=== PATIENT | female | born 1935 | race Caucasian/White ===

== ENCOUNTER 2016-04-14 18:15 | Outpatient (CLI) | payer MEDICARE, OTHER | END 2016-04-14 18:16 | disposition home or self-care (01) | DX: Z79.899 Other long term (current) drug therapy (principal); Z79.01 Long term (current) use of anticoagulants; I48.91 Unspecified atrial fibrillation ==

== ENCOUNTER 2016-05-16 08:00 | Outpatient (CLI) | payer MEDICARE, OTHER | END 2016-05-16 08:01 | disposition home or self-care (01) | DX: I48.91 Unspecified atrial fibrillation (principal); Z79.01 Long term (current) use of anticoagulants ==

== ENCOUNTER 2016-05-16 21:49 | Outpatient (CLI) | payer MEDICARE, OTHER | END 2016-05-16 21:50 | disposition home or self-care (01) | DX: Z53.9 Procedure and treatment not carried out, unspecified reason (principal) ==

== ENCOUNTER 2016-08-02 21:00 | Outpatient (CLI) | payer MEDICARE, OTHER | END 2016-08-02 21:01 | disposition home or self-care (01) | LOC: LAB 21:00 | PROVIDERS: ATTEND Internal Medicine | DX: I48.91 Unspecified atrial fibrillation (principal); Z79.01 Long term (current) use of anticoagulants | CPT/HCPCS: 85610 ==

== ENCOUNTER 2016-08-31 19:48 | Outpatient (CLI) | payer MEDICARE, OTHER | END 2016-08-31 19:49 | disposition home or self-care (01) | LOC: LAB 19:48 | PROVIDERS: ATTEND Internal Medicine | DX: I48.91 Unspecified atrial fibrillation (principal); Z79.01 Long term (current) use of anticoagulants | CPT/HCPCS: 85610 ==

== ENCOUNTER 2016-09-05 15:56 | Outpatient (CLI) | payer MEDICARE, OTHER ==
--- NOTE | 2016-09-06 14:00 | XRAY Report ---
TWO VIEW CHEST: 09/05/2016 CLINICAL INDICATION: Dyspnea, anorexia, night sweats. COMPARISON: 01/15/2013. FINDINGS: Frontal and lateral views of the chest demonstrate a normal cardiac silhouette. The lungs again demonstrate hyperinflation, suggestive of COPD. No focal consolidation, effusion, or pneumothor ax is evident. Degenerative changes of the thoracic spine are stable. IMPRESSION: HYPERINFLATION, COMPATIBLE WITH COPD. NO EVIDENCE OF ACUTE CARDIOPULMONARY DISEASE. JOB #: [id number] EXT JOB #:[id number]
== END 2016-09-05 15:57 | disposition home or self-care (01) ==
LOC: DI 15:56
PROVIDERS: ATTEND Internal Medicine
DX: R06.00 Dyspnea, unspecified (principal); R63.0 Anorexia; R61 Generalized hyperhidrosis
CPT/HCPCS: 71020

== ENCOUNTER 2016-09-18 12:53 | Outpatient (CLI) | payer MEDICARE, OTHER | END 2016-09-18 12:54 | disposition home or self-care (01) | LOC: DI 12:53 | PROVIDERS: ATTEND Internal Medicine | DX: R06.00 Dyspnea, unspecified (principal); M06.9 Rheumatoid arthritis, unspecified; I37.1 Nonrheumatic pulmonary valve insufficiency | CPT/HCPCS: 93306 ==

== ENCOUNTER 2016-10-13 21:08 | Outpatient (CLI) | payer MEDICARE, OTHER | END 2016-10-13 21:09 | disposition home or self-care (01) | LOC: LAB 21:08 | PROVIDERS: ATTEND Internal Medicine | DX: I48.91 Unspecified atrial fibrillation (principal); Z79.01 Long term (current) use of anticoagulants | CPT/HCPCS: 85610 ==

== ENCOUNTER 2016-11-23 22:00 | Outpatient (CLI) | payer MEDICARE, OTHER ==
[2016-11-29 16:58] LABS: PT - PROTHROMBIN TIME 22.6 secs (9.9-12.6)
== END 2016-11-23 22:01 | disposition home or self-care (01) ==
LOC: LAB 22:00
PROVIDERS: ATTEND Internal Medicine
DX: Z53.9 Procedure and treatment not carried out, unspecified reason (principal)
CPT/HCPCS: 36415; 85610

== ENCOUNTER 2017-01-19 19:51 | Outpatient (CLI) | payer MEDICARE, OTHER | END 2017-01-19 19:52 | disposition home or self-care (01) | LOC: LAB 19:51 | PROVIDERS: ATTEND Internal Medicine | DX: I48.91 Unspecified atrial fibrillation (principal); Z79.01 Long term (current) use of anticoagulants | CPT/HCPCS: 85610 ==

== ENCOUNTER 2017-02-21 21:13 | Outpatient (CLI) | payer MEDICARE, OTHER | END 2017-02-21 21:14 | disposition home or self-care (01) | LOC: LAB 21:13 | PROVIDERS: ATTEND Internal Medicine | DX: I48.91 Unspecified atrial fibrillation (principal); Z79.01 Long term (current) use of anticoagulants | CPT/HCPCS: 85610 ==

== ENCOUNTER 2017-04-13 21:48 | Outpatient (CLI) | payer MEDICARE, OTHER | END 2017-04-13 21:49 | disposition home or self-care (01) | LOC: LAB 21:48 | PROVIDERS: ATTEND Internal Medicine | DX: I48.91 Unspecified atrial fibrillation (principal); Z79.01 Long term (current) use of anticoagulants | CPT/HCPCS: 85610 ==

== ENCOUNTER 2017-05-25 18:50 | Outpatient (CLI) | payer MEDICARE, OTHER | END 2017-05-25 18:51 | disposition home or self-care (01) | LOC: LAB 18:50 | PROVIDERS: ATTEND Internal Medicine | DX: I48.91 Unspecified atrial fibrillation (principal); Z79.01 Long term (current) use of anticoagulants | CPT/HCPCS: 85610 ==

== ENCOUNTER 2017-07-02 19:24 | Outpatient (CLI) | payer MEDICARE, OTHER | END 2017-07-02 19:25 | disposition home or self-care (01) | LOC: LAB 19:24 | PROVIDERS: ATTEND Internal Medicine | DX: I48.91 Unspecified atrial fibrillation (principal); Z79.01 Long term (current) use of anticoagulants | CPT/HCPCS: 85610 ==

== ENCOUNTER 2017-08-13 21:17 | Outpatient (CLI) | payer MEDICARE, OTHER | END 2017-08-13 21:18 | disposition home or self-care (01) | LOC: LAB 21:17 | PROVIDERS: ATTEND Internal Medicine | DX: I48.91 Unspecified atrial fibrillation (principal); Z79.01 Long term (current) use of anticoagulants | CPT/HCPCS: 85610 ==

== ENCOUNTER 2017-09-26 22:07 | Outpatient (CLI) | payer MEDICARE, OTHER | END 2017-09-26 22:08 | disposition home or self-care (01) | LOC: LAB 22:07 | PROVIDERS: ATTEND Internal Medicine | DX: I48.91 Unspecified atrial fibrillation (principal); Z79.01 Long term (current) use of anticoagulants | CPT/HCPCS: 85610 ==

== ENCOUNTER 2017-11-19 22:03 | Outpatient (CLI) | payer MEDICARE, OTHER | END 2017-11-19 22:04 | disposition home or self-care (01) | LOC: LAB 22:03 | PROVIDERS: ATTEND Internal Medicine | DX: I48.91 Unspecified atrial fibrillation (principal); Z79.01 Long term (current) use of anticoagulants | CPT/HCPCS: 85610 ==

== ENCOUNTER 2017-12-23 23:08 | Outpatient (CLI) | payer MEDICARE, OTHER | END 2017-12-23 23:09 | disposition home or self-care (01) | LOC: LAB 23:08 | PROVIDERS: ATTEND Internal Medicine | DX: I48.91 Unspecified atrial fibrillation (principal); Z79.01 Long term (current) use of anticoagulants | CPT/HCPCS: 85610 ==

== ENCOUNTER 2018-02-13 19:58 | Outpatient (CLI) | payer MEDICARE, OTHER | END 2018-02-13 19:59 | disposition home or self-care (01) | LOC: LAB 19:58 | PROVIDERS: ATTEND Internal Medicine | DX: I48.91 Unspecified atrial fibrillation (principal); Z79.01 Long term (current) use of anticoagulants | CPT/HCPCS: 85610 ==

== ENCOUNTER 2018-04-17 20:14 | Outpatient (CLI) | payer MEDICARE, OTHER | END 2018-04-17 20:15 | disposition home or self-care (01) | LOC: LAB 20:14 | PROVIDERS: ATTEND Internal Medicine | DX: I48.91 Unspecified atrial fibrillation (principal); Z79.01 Long term (current) use of anticoagulants | CPT/HCPCS: 85610 ==

== ENCOUNTER 2018-05-21 19:07 | Outpatient (CLI) | payer MEDICARE, OTHER | END 2018-05-21 19:08 | disposition home or self-care (01) | LOC: LAB 19:07 | PROVIDERS: ATTEND Internal Medicine | DX: I48.91 Unspecified atrial fibrillation (principal); Z79.01 Long term (current) use of anticoagulants | CPT/HCPCS: 85610 ==

== ENCOUNTER 2018-06-28 20:11 | Outpatient (CLI) | payer MEDICARE, OTHER | END 2018-06-28 20:12 | disposition home or self-care (01) | LOC: LAB 20:11 | PROVIDERS: ATTEND Internal Medicine | DX: I48.91 Unspecified atrial fibrillation (principal); Z79.01 Long term (current) use of anticoagulants | CPT/HCPCS: 85610 ==

== ENCOUNTER 2018-08-06 20:59 | Outpatient (CLI) | payer MEDICARE, OTHER | END 2018-08-06 21:00 | disposition home or self-care (01) | LOC: LAB 20:59 | PROVIDERS: ATTEND Internal Medicine | DX: I48.91 Unspecified atrial fibrillation (principal); Z79.01 Long term (current) use of anticoagulants | CPT/HCPCS: 85610 ==

== ENCOUNTER 2018-08-06 21:20 | Emergency (ER) | payer MEDICARE, OTHER ==
--- NOTE | 2018-08-06 21:55 | XRAY Report ---
Reason: toilet lid vs left wrist Procedure Date: 08/06/2018 Accession Number: [id number] / [id number] Procedure: XR - Wrist 4 View LT CPT Code: FULL RESULT: EXAM: LEFT WRIST RADIOGRAPHY EXAM DATE: 08/06/2018 09:45 PM. CLINICAL HISTORY: Toilet lid vs left wrist. COMPARISON: HAND 2 VIEW BILAT 02/25/2014 6:17 PM. TECHNIQUE: 4 views. FINDINGS: Bones: No fracture or focal bony lesion. Joints: No evidence of dislocation. Soft Tissues: No unexpected soft tissue findings. IMPRESSION: No evidence of fracture or dislocation. RADIA
--- NOTE | 2018-08-06 22:32 | ED Physician Documentation ---
PD HPI UPPER EXT INJURY - Stated complaint Stated Complaint: LT WRIST PX - Chief complaint Chief Complaint: Ext Problem - History obtained from History obtained from: Patient - History of Present Illness Location: Left, Wrist Type of injury: Blunt / blow (3 months ago patient closed a toilet seat lid on her left wrist and it has ached ever since. Today the [employer]orer [employer] told her to come to the ED to get it checked out) Where injury occurred: Home Timing - onset: How many months ago (3) Timing - duration: Months (3) Timing - details: Abrupt onset, Still present Pain level max: 5 Pain level now: 3 Improved by: Rest Worsened by: Moving, Palpating Associated symptoms: No: Weakness, Numbness, Tingling, Swelling Contributing factors: No: Anticoagulated, Prior ortho surgery Similar symptoms before: Has not had sx before Recently seen: Clinic (saw her doctor but forgot to tell him about it) - Treatment prior to arrival Treatment prior to arrival: none PD PAST MEDICAL HISTORY - Past Medical History Past Medical History: Yes - Allergies Allergies/Adverse Reactions: Allergies Allergy/AdvReac Type Severity Reaction Status Date / Time codeine Allergy Hallucinati Verified 08/06/18 21:31 ons PD ED PE NORMAL - Vitals Vital signs reviewed: Yes - General General: Alert and oriented X 3, No acute distress - HEENT HEENT: Atraumatic - Neck Neck: Supple, no meningeal sign - Cardiac Cardiac: RRR - Respiratory Respiratory: No respiratory distress - Abdomen Abdomen: Non distended - Female Female : Deferred - Rectal Rectal: Deferred - Derm Derm: Normal color, Warm and dry, No rash - Extremities Extremities: No deformity, No tenderness to palpate, Normal ROM s pain, No edema, No calf tenderness / cord, Other (Left wrist without significant tenderness, swelling or deformity. Neurovascularly intact) - Neuro Neuro: Alert and oriented X 3, No motor deficit, No sensory deficit Eye Opening: Spontaneous Motor: Obeys Commands Verbal: Oriented GCS Score: 15 - Psych Psych: Normal mood, Normal affect Results - Vitals Vitals: Oxygen O2 Source Room air - Rads (name of study) No standard instances Radiology: Final report received (negative L wrist xray) PD MEDICAL DECISION MAKING - ED course Complexity details: reviewed results, re-evaluated patient, considered differential, d/w patient ED course: DDx - left wrist sprain, fracture, contusion 3 month old minor trauma to L wrist. Pt with normal exam and full ROM Pt with normal xrays Advised tylenol as needed for pain. Departure - Departure Disposition: 01 Home, Self Care Clinical Impression: Wrist pain, left, Wrist arthritis Condition: Good Record reviewed to determine appropriate education?: Yes Instructions: ED Contusion Upper Extr Ch Follow-Up: Marcio Tracy IV, MD [Physician No Access] - As Needed Comments: Your wrist xrays here today were negative for fracture or dislocation. This is likely some arthritis of your wrist. You should take tylenol 500mg every 6 hours as needed for pain. Discharge Date/Time: 08/06/18 23:23
[2018-08-06] MEDS ORDERED: ACETAMINOPHEN 325 MG TABLET PO STA (22:51)
[2018-08-06 23:22] VITALS: BP 180/63
== END 2018-08-06 23:23 | disposition home or self-care (01) ==
LOC: ED 21:20
DX: M19.032 Primary osteoarthritis, left wrist (principal); I48.91 Unspecified atrial fibrillation; Z79.01 Long term (current) use of anticoagulants
CPT/HCPCS: 73110; 85610; 99281; 99283; A9270

== ENCOUNTER 2018-10-05 21:14 | Outpatient (CLI) | payer MEDICARE, OTHER | END 2018-10-05 21:15 | disposition home or self-care (01) | LOC: LAB 21:14 | PROVIDERS: ATTEND Internal Medicine | DX: I48.91 Unspecified atrial fibrillation (principal); Z79.01 Long term (current) use of anticoagulants | CPT/HCPCS: 85610 ==

== ENCOUNTER 2018-10-05 21:39 | Emergency (ER) | payer MEDICARE, OTHER ==
[2018-10-05] MEDS ORDERED: CEPHALEXIN 250 MG Prepack 8 CAP BOTTLE PO STA (21:53)
--- NOTE | 2018-10-05 21:56 | ED Physician Documentation ---
History of Present Illness - Stated complaint Stated Complaint: BILAT ANKLE REDNESS - Chief complaint Chief Complaint: Ext Problem - History obtained from History obtained from: Patient - History of Present Illness Timing: Today (She noticed a spotty rash on the anterior ankles today and is worried about an infection. She has no fevers or chills but does not feel "peppy." She also notes that about a month and a half ago she injured her left wrist with negative x-rays but still has persistent pain along the radial side of the wrist with certain motions.) Review of Systems Constitutional: reports: Reviewed and negative Nose: reports: Reviewed and negative Throat: reports: Reviewed and negative Cardiac: reports: Reviewed and negative Respiratory: reports: Reviewed and negative PD PAST MEDICAL HISTORY - Past Medical History Past Medical History: Yes Cardiovascular: Atrial fibrillation Respiratory: Pneumonia, Shortness of breath Neuro: None Endocrine/Autoimmune: HyPOthyroidism GI: None 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 : Incontinence, Frequency HEENT: Other Psych: None Musculoskeletal: Rheumatoid arthritis Derm: None - Past Surgical History Past Surgical History: Yes /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 MAKER: section, Tubal ligation Cardiovascular: Other HEENT: Cataracts - Present Medications Home Medications: Ambulatory Orders Medication Instructions Recorded Confirmed Cephalexin [Keflex] 500 mg PO Q6H #28 capsule 10/05/18 - Allergies Allergies/Adverse Reactions: Allergies Allergy/AdvReac Type Severity Reaction Status Date / Time codeine Allergy Hallucinati Verified 10/05/18 21:46 ons - Social History Does the pt smoke?: No Smoking Status: Never smoker Does the pt drink ETOH?: Yes Does the pt have substance abuse?: No - Immunizations Immunizations are current?: Yes - POLST Patient has POLST: No PD ED PE NORMAL - Vitals Vital signs reviewed: Yes - General General: Alert and oriented X 3, No acute distress - Extremities Extremities: Other (She has very mild cellulitis of the anterior ankles without TTP and With full range of motion, nontender. Good pedal pulses. The left wrist itself is not tender, but she has significant pain with de Quervain's testing.) - Neuro Neuro: Alert and oriented X 3, Normal speech Results - Vitals Vitals: Vital Signs - 24 hr 10/05/18 10/05/18 21:42 22:09 Temperature 36.9 C Heart Rate 60 52 L Respiratory 96 H 18 Rate Blood Pressure 202/71 H 191/76 H O2 Saturation 98 98 Oxygen O2 Source Room air PD MEDICAL DECISION MAKING - ED course ED course: 83yo woman on coumadin with mild anle cellulitis, started keflex, discussed need for close PT testing. Also what seems like a persistent tendinitis of L wrist s/p injury and placed in a velcro splint. Departure - Departure Disposition: 01 Home, Self Care Clinical Impression: Left wrist tendinitis, Cellulitis of ankle Condition: Good Record reviewed to determine appropriate education?: Yes Instructions: ED Infec Skin Cellulitis, ED Tendinitis Calcific Follow-Up: Addie Saenz MD [Primary Care Provider] - Within 3 Days Prescriptions: Cephalexin [Keflex] 500 mg PO Q6H #28 capsule Comments: Often times when you start antibiotics while you are taking anticoagulants such as Coumadin or warfarin, your INR will go up. You need to have your INR checked frequently while on the antibiotics. Have it checked in 3 days, again in 6 days, and at least weekly while you are on antibiotics. Dose adjustments of your anticoagulants may be necessary. Your blood pressure was elevated today on check into the emergency department. This does not mean that you have hypertension, it is a common phenomenon to come to the emergency department and have elevated blood pressure. I recommend that you see your primary care physician within the week to have it rechecked when you are feeling better. Discharge Date/Time: 10/05/18 22:30
[2018-10-05 22:09] VITALS: BP 191/76
== END 2018-10-05 22:30 | disposition home or self-care (01) ==
LOC: ED 21:39
DX: L03.116 Cellulitis of left lower limb (principal); L03.115 Cellulitis of right lower limb; M77.9 Enthesopathy, unspecified; M25.532 Pain in left wrist; R03.0 Elevated blood-pressure reading, without diagnosis of hypertension; I48.91 Unspecified atrial fibrillation; Z79.01 Long term (current) use of anticoagulants
CPT/HCPCS: 85610; 99282; 99283

== ENCOUNTER 2018-10-10 16:07 | Outpatient (CLI) | payer MEDICARE, OTHER ==
--- NOTE | 2018-10-11 08:30 | Mammography Report ---
Reason: ANNUAL Procedure Date: 10/10/2018 Accession Number: [id number] / [id number] Procedure: BETI - Screening Mammo Dig Bilat CPT Code: FULL RESULT: EXAM: Screening Mammo Dig Bilat DATE: 10/10/2018 4:48 PM CLINICAL HISTORY: Screening encounter. History of early menses. TECHNIQUE: (B) - Bilateral CC, laterally exaggerated CC, MLO views were obtained. COMPARISON: 07/15/2015. PARENCHYMAL PATTERN: (A) - The breast(s) demonstrate(s) scattered fibroglandular densities. FINDINGS: There are typically benign large rodlike, vascular and coarse calcifications. There are no suspicious masses, calcifications, or areas of distortion. IMPRESSION: Benign findings. BI-RADS category 2. RECOMMENDATION: (ANNUAL) - Recommend routine annual screening mammography. BI-RADS CATEGORY: (2) - Benign Findings. STANDARD QUALIFYING STATEMENTS: 1. This examination was not reviewed with the aid of Computer-Aided Detection (CAD). 2. A negative or benign imaging report should not preclude biopsy if clinically suspicious findings are present. 3. Dense breasts may obscure an underlying neoplasm. 4. This examination was reviewed without the aid of 3D breast imaging (tomosynthesis).
== END 2018-10-10 16:08 | disposition home or self-care (01) ==
LOC: DI 16:07
DX: Z12.31 Encounter for screening mammogram for malignant neoplasm of breast (principal)
CPT/HCPCS: 77067

== ENCOUNTER 2018-10-14 19:19 | Outpatient (CLI) | payer MEDICARE, OTHER | END 2018-10-14 19:20 | disposition home or self-care (01) | LOC: LAB 19:19 | PROVIDERS: ATTEND Internal Medicine | DX: I48.91 Unspecified atrial fibrillation (principal); Z79.01 Long term (current) use of anticoagulants | CPT/HCPCS: 85610 ==

== ENCOUNTER 2018-10-14 19:36 | Emergency (ER) | payer MEDICARE, OTHER ==
--- NOTE | 2018-10-14 21:07 | ED Physician Documentation ---
PD HPI SKIN - Stated complaint Stated Complaint: BILAT LEG RASH - Chief complaint Chief Complaint: Wound - History obtained from History obtained from: Patient - History of Present Illness Timing - onset: How many weeks ago (1) Timing - details: Gradual onset, Now resolved (mostly gone without redness nor swelling anymore but still has some red spots that patient is concerned that the infection is not fully resolved.) Location: RLE, LLE (both anterior lower legs had had swelling and redness, no sores.) Quality / character: Other (no longer any redness nor swelling like a week ago.). No: Itchy Associated symptoms: No: Fever, Myalgias, N/V/D Recently seen: Emergency Dept (seen a week or so ago with Dx cellulitis on lower legs. Rx with Keflex and she says is motl better with still some residual red spots. 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 : Incontinence, Frequency HEENT: Other Psych: None Musculoskeletal: Rheumatoid arthritis Derm: None - Past Surgical History Past Surgical History: Yes /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, Tubal ligation Cardiovascular: Other HEENT: Cataracts - Present Medications Home Medications: Ambulatory Orders Medication Instructions Recorded Confirmed Cephalexin [Keflex] 500 mg PO Q6H #28 capsule 10/05/18 Doxycycline Hyclate 100 mg PO BID #14 capsule 10/14/18 - Allergies Allergies/Adverse Reactions: Allergies Allergy/AdvReac Type Severity Reaction Status Date / Time codeine Allergy Hallucinati Verified 10/14/18 19:43 ons - Social History Does the pt smoke?: No Smoking Status: Never smoker Does the pt drink ETOH?: Yes Does the pt have substance abuse?: No - Immunizations Immunizations are current?: Yes - POLST Patient has POLST: No PD ED PE NORMAL - Vitals Vital signs reviewed: Yes - General General: Alert and oriented X 3, No acute distress, Well developed/nourished - Cardiac Cardiac: RRR, No murmur - Respiratory Respiratory: Clear bilaterally - Derm Derm: Normal color, Warm and dry - Extremities Extremities: No edema, No calf tenderness / cord, Other (Both anterior lower legs are without any notable swelling redness or edema. The skin does have small little red spots consistent with mild petechiae and look most consistent with small vessel injury from when she had had swelling. I do not see any purpura. There is no induration. No skin sores nor abscesses. The calves are nontender.) - Neuro Neuro: Alert and oriented X 3, No motor deficit, Normal speech Results - Vitals Vitals: Oxygen O2 Source Room air PD MEDICAL DECISION MAKING - ED course Complexity details: re-evaluated patient (her BP was elevated here, and was on prior visit as well. She says it is usually okay in office or just slightly high. Talked with her about having it checked by PMD. ), considered differential (I think the skin does not look cellulitic anymore but has some very small petechial type changes suggestive of a small vessel injury when there has been swelling. I told her to watch the skin over the next couple of days and see if she has any increasing redness again and if so to start antibiotics. Otherwise to allow it to just keep healing.), d/w patient Departure - Departure Disposition: 01 Home, Self Care Clinical Impression: Encounter for wound re-check Condition: Stable Record reviewed to determine appropriate education?: Yes Follow-Up: Addie Saenz MD [Primary Care Provider] - Prescriptions: Doxycycline Hyclate 100 mg PO BID #14 capsule Comments: Your legs look pretty good today with just slight bit of redness. This may be just residual coloration after the cellulitis. Give it a couple of days and see if the redness increases again and if so start the antibiotic. Otherwise if it stays looking as it currently does, then just follow-up with your primary care next week as planned. Continue usual medications. Discharge Date/Time: 10/14/18 21:24
[2018-10-14 21:19] VITALS: BP 208/78
== END 2018-10-14 21:24 | disposition home or self-care (01) ==
LOC: ED 19:36
DX: R23.3 Spontaneous ecchymoses (principal); R03.0 Elevated blood-pressure reading, without diagnosis of hypertension; I48.91 Unspecified atrial fibrillation; Z79.01 Long term (current) use of anticoagulants
CPT/HCPCS: 85610; 99282; 99284

== ENCOUNTER 2018-11-26 22:33 | Outpatient (CLI) | payer MEDICARE, OTHER | END 2018-11-26 22:34 | disposition home or self-care (01) | LOC: LAB 22:33 | PROVIDERS: ATTEND Internal Medicine | DX: I48.91 Unspecified atrial fibrillation (principal); Z79.01 Long term (current) use of anticoagulants | CPT/HCPCS: 85610 ==

== ENCOUNTER 2019-01-15 20:26 | Outpatient (CLI) | payer MEDICARE, OTHER | END 2019-01-15 20:27 | disposition home or self-care (01) | LOC: LAB 20:26 | PROVIDERS: ATTEND Internal Medicine | DX: I48.91 Unspecified atrial fibrillation (principal); Z79.01 Long term (current) use of anticoagulants | CPT/HCPCS: 85610 ==

== ENCOUNTER 2019-02-16 19:14 | Outpatient (CLI) | payer MEDICARE, OTHER ==
[2019-02-16 19:47] LABS: INR 2.2 (0.8-1.2); PT - PROTHROMBIN TIME 23.8 secs (9.9-12.6)
== END 2019-02-16 19:15 | disposition home or self-care (01) ==
LOC: LAB.R 19:14
PROVIDERS: ATTEND Internal Medicine
DX: I48.91 Unspecified atrial fibrillation (principal); Z79.01 Long term (current) use of anticoagulants
CPT/HCPCS: 85610

== ENCOUNTER 2019-04-01 22:39 | Outpatient (CLI) | payer MEDICARE, OTHER | END 2019-04-01 22:40 | disposition home or self-care (01) | LOC: LAB 22:39 | PROVIDERS: ATTEND Internal Medicine | DX: Z79.01 Long term (current) use of anticoagulants (principal); I48.91 Unspecified atrial fibrillation | CPT/HCPCS: 85610 ==

== ENCOUNTER 2019-05-28 22:42 | Outpatient (CLI) | payer MEDICARE, OTHER | END 2019-05-28 22:43 | disposition home or self-care (01) | LOC: LAB 22:42 | PROVIDERS: ATTEND Internal Medicine | DX: I48.91 Unspecified atrial fibrillation (principal); Z79.01 Long term (current) use of anticoagulants | CPT/HCPCS: 85610 ==

== ENCOUNTER 2020-05-21 15:03 | Outpatient (CLI) | payer MEDICARE, OTHER ==
[2020-05-21 15:25] LABS: BASOPHILS # (AUTO) 0.1 10^3/uL (0.0-0.1); BASOPHILS % (AUTO) 0.9 %; EOSINOPHILS # (AUTO) 0.1 10^3/uL (0.0-0.7); EOSINOPHILS % (AUTO) 2.4 %; HCT - HEMATOCRIT 42.5 % (37.0-47.0); LYMPHOCYTES % (AUTO) 18.5 %; MEAN CORPUSCULAR HEMOGLOBIN 30.6 pg (27.0-31.0); MEAN CORPUSCULAR HGB CONC 32.9 g/dL (32.0-36.0); MEAN PLATELET VOLUME 10.2 fL (7.9-10.8); MONOCYTES # (AUTO) 0.4 10^3/uL (0.0-1.0); MONOCYTES % (AUTO) 7.2 %; NEUTROPHILS # (AUTO) 3.8 10^3/uL (1.5-6.6); NEUTROPHILS % (AUTO) 70.8 %; PLT - PLATELET COUNT 176 10^3/uL (130-450); RED BLOOD COUNT 4.57 10^6/uL (4.20-5.40); WHITE BLOOD COUNT 5.3 x10^3/uL (4.8-10.8)
[2020-05-21 15:45] LABS: ALBUMIN 5.1 g/dL (3.2-5.5); ALBUMIN/GLOBULIN RATIO 1.4 (1.0-2.2); ALKALINE PHOSPHATASE 53 IU/L (42-121); ALT ALANINE AMINOTRANSFERASE 17 IU/L (10-60); AST ASPARTATE AMINOTRANSFERASE 28 IU/L (10-42); BILIRUBIN,TOTAL 1.3 mg/dL (0.2-1.0); BUN - BLOOD UREA NITROGEN 16 mg/dL (6-20); CALCIUM 9.9 mg/dL (8.5-10.3); CARBON DIOXIDE - CO2 30 mmol/L (21-32); CHLORIDE 96 mmol/L (101-111); CHOL/HDL RATIO 2.4 (<4.4); CHOLESTEROL 236 mg/dL; CREATININE 0.9 mg/dL (0.4-1.0); GFR - MDRD 60 (>89); GLUCOSE 115 mg/dL (70-100); HDL CHOLESTEROL 100 mg/dL; LDL CHOLESTEROL,CALCULATED 123 mg/dL; LDL/HDL RATIO 1.2 (<4.4); POTASSIUM 3.9 mmol/L (3.5-5.0); SODIUM 141 mmol/L (135-145); TOTAL PROTEIN 8.7 g/dL (6.7-8.2); TRIGLYCERIDES 63 mg/dL; VLDL CHOLESTEROL 13 mg/dL
[2020-05-21 15:56] LABS: THYROID STIMULATING HORMONE 5.07 uIU/mL (0.34-5.60)
[2020-05-21 20:16] LABS: ESTIMATED AVERAGE GLUCOSE 108 mg/dL (70-100); HEMOGLOBIN A1c% 5.4 % (4.27-6.07)
== END 2020-05-21 15:04 | disposition home or self-care (01) ==
LOC: LAB 15:03
PROVIDERS: ATTEND Internal Medicine
DX: R06.09 Other forms of dyspnea (principal); R53.83 Other fatigue; F32.9 Major depressive disorder, single episode, unspecified; R73.9 Hyperglycemia, unspecified; E03.9 Hypothyroidism, unspecified; Z79.899 Other long term (current) drug therapy; Z13.6 Encounter for screening for cardiovascular disorders
CPT/HCPCS: 36415; 80053; 80061; 82306; 82607; 83036; 83721; 83880; 84443; 85025

== ENCOUNTER 2020-08-24 22:39 | Outpatient (CLI) | payer MEDICARE, OTHER ==
[2020-08-24 23:15] LABS: INR 2.6 (0.8-1.2); PT - PROTHROMBIN TIME 27.1 secs (9.9-12.6)
== END 2020-08-24 22:40 | disposition home or self-care (01) ==
LOC: LAB 22:39
PROVIDERS: ATTEND Internal Medicine
DX: I48.91 Unspecified atrial fibrillation (principal); Z79.01 Long term (current) use of anticoagulants
CPT/HCPCS: 36415; 85610

== ENCOUNTER 2020-10-02 21:30 | Outpatient (CLI) | payer MEDICARE, OTHER | END 2020-10-02 21:31 | disposition home or self-care (01) | LOC: LAB 21:30 | PROVIDERS: ATTEND Internal Medicine | DX: I48.91 Unspecified atrial fibrillation (principal); Z79.01 Long term (current) use of anticoagulants | CPT/HCPCS: 36416; 85610 ==

== ENCOUNTER 2020-11-05 23:13 | Outpatient (CLI) | payer MEDICARE, OTHER | END 2020-11-05 23:14 | disposition home or self-care (01) | LOC: LAB 23:13 | PROVIDERS: ATTEND Internal Medicine | DX: I48.91 Unspecified atrial fibrillation (principal); Z79.01 Long term (current) use of anticoagulants | CPT/HCPCS: 85610 ==

== ENCOUNTER 2022-04-13 12:26 | Outpatient (CLI) | payer MEDICARE, OTHER ==
[2022-04-13 13:26] LABS: BASOPHILS # (AUTO) 0.1 10^3/uL (0.0-0.1); BASOPHILS % (AUTO) 1.1 %; EOSINOPHILS # (AUTO) 0.2 10^3/uL (0.0-0.7); EOSINOPHILS % (AUTO) 4.3 %; HCT - HEMATOCRIT 41.2 % (37.0-47.0); HGB - HEMOGLOBIN 13.3 g/dL (12.0-16.0); LYMPHOCYTES # (AUTO) 1.2 10^3/uL (1.5-3.5); MEAN CORPUSCULAR HEMOGLOBIN 30.1 pg (27.0-31.0); MEAN CORPUSCULAR HGB CONC 32.3 g/dL (32.0-36.0); MEAN CORPUSCULAR VOLUME 93.2 fL (81.0-99.0); MEAN PLATELET VOLUME 10.3 fL (7.9-10.8); MONOCYTES # (AUTO) 0.4 10^3/uL (0.0-1.0); MONOCYTES % (AUTO) 6.9 %; NEUTROPHILS # (AUTO) 3.7 10^3/uL (1.5-6.6); NEUTROPHILS % (AUTO) 66.3 %; PLT - PLATELET COUNT 179 10^3/uL (130-450); RED BLOOD COUNT 4.42 10^6/uL (4.20-5.40); RED CELL DISTRIBUTION WIDTH 12.7 % (12.0-15.0); WHITE BLOOD COUNT 5.6 x10^3/uL (4.8-10.8)
[2022-04-13 13:29] LABS: INR 2.2 (0.8-1.2); PT - PROTHROMBIN TIME 24.1 secs (9.9-12.6)
[2022-04-13 13:37] LABS: ESTIMATED AVERAGE GLUCOSE 105 mg/dL (70-100); HEMOGLOBIN A1c% 5.3 % (4.27-6.07)
[2022-04-13 14:07] LABS: ALBUMIN 4.5 g/dL (3.2-5.5); ALBUMIN/GLOBULIN RATIO 1.2 (1.0-2.2); ALKALINE PHOSPHATASE 48 IU/L (42-121); ALT ALANINE AMINOTRANSFERASE 15 IU/L (10-60); AST ASPARTATE AMINOTRANSFERASE 26 IU/L (10-42); BILIRUBIN,TOTAL 1.4 mg/dL (0.2-1.0); BUN - BLOOD UREA NITROGEN 18 mg/dL (6-20); CALCIUM 9.5 mg/dL (8.5-10.3); CARBON DIOXIDE - CO2 32 mmol/L (21-32); CHLORIDE 94 mmol/L (101-111); CHOL/HDL RATIO 2.5 (<4.4); CHOLESTEROL 212 mg/dL; CREATININE 0.9 mg/dL (0.4-1.0); DIGOXIN 0.8 ng/mL; GFR - MDRD 59 (>89); GLUCOSE 108 mg/dL (70-100); HDL CHOLESTEROL 84 mg/dL; LDL CHOLESTEROL,CALCULATED 116 mg/dL; LDL/HDL RATIO 1.4 (<4.4); POTASSIUM 3.8 mmol/L (3.5-5.0); SODIUM 136 mmol/L (135-145); TOTAL PROTEIN 8.4 g/dL (6.7-8.2); TRIGLYCERIDES 60 mg/dL; VLDL CHOLESTEROL 12 mg/dL
== END 2022-04-13 12:27 | disposition home or self-care (01) ==
LOC: LAB 12:26
PROVIDERS: ATTEND Internal Medicine
DX: Z00.00 Encounter for general adult medical examination without abnormal findings (principal); H35.30 Unspecified macular degeneration; I48.91 Unspecified atrial fibrillation; H26.9 Unspecified cataract; F32.A Depression, unspecified; R06.09 Other forms of dyspnea; R53.83 Other fatigue; R73.9 Hyperglycemia, unspecified; E78.5 Hyperlipidemia, unspecified; I10 Essential (primary) hypertension; E03.9 Hypothyroidism, unspecified; H61.20 Impacted cerumen, unspecified ear; R21 Rash and other nonspecific skin eruption; Z79.899 Other long term (current) drug therapy; Z79.01 Long term (current) use of anticoagulants
CPT/HCPCS: 36415; 80053; 80061; 80162; 83036; 83721; 84443; 85025; 85610

== ENCOUNTER 2022-04-28 16:13 | Inpatient (IN) | payer MEDICARE, OTHER ==
--- NOTE | 2022-04-28 16:48 | ED Physician Documentation ---
History of Present Illness - Stated complaint Stated Complaint: SOA/UNABLE TO SLEEP - Chief complaint Chief Complaint: Resp - Additonal information Additional information: History is obtained from patient. She is extremely hard of hearing making interview difficult. Ancillary history is also obtained from her son in the room though he does not live with his mother. 87-year-old female presents emergency department for 1 week of feeling generally unwell. Her son who is visiting her states that he had the "crud". He fears that he gave his mom an upper respiratory infection. For much of the last week she has been feeling weak, eating very little, feeling short of air and having a dry cough. On presentation to the emergency department her room air saturations were 80%. With 3 L nasal cannula the saturations slowly zulma to the mid 90s. The patient is a former smoker having quit more than 20 years ago. She denies any previous history of oxygen dependence at home. Denies any history of COPD. She does have a history of atrial fibrillation for which she is on Coumadin. Also appears to be on diltiazem XL for rate control. She is followed by Dr. Addie Saenz. Patient denies any chest pain though she is very short of air and fatigue. She does have fairly prominent murmur. When questioned about this she says she has had it since Review of Systems Constitutional: denies: Fever, Chills Eyes: reports: Reviewed and negative Nose: reports: Reviewed and negative Throat: reports: Reviewed and negative Cardiac: reports: Reviewed and negative Respiratory: reports: Dyspnea, Cough GI: reports: Reviewed and negative : reports: Reviewed and negative Skin: reports: Reviewed and negative Musculoskeletal: reports: Reviewed and negative Neurologic: reports: Reviewed and negative PD PAST MEDICAL HISTORY - Past Medical History Cardiovascular: Atrial fibrillation Respiratory: Pneumonia, Shortness of breath Neuro: None Endocrine/Autoimmune: HyPOthyroidism GI: None 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: None : Incontinence, Frequency HEENT: Other Psych: None Musculoskeletal: Rheumatoid arthritis Derm: None - Past Surgical History Past Surgical History: Yes /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: section, Tubal ligation Cardiovascular: Other HEENT: Cataracts - Present Medications Home Medications: Ambulatory Orders Medication Instructions Recorded Confirmed Cholecalciferol [Vitamin D3] 25 mcg PO DAILY 04/28/22 04/28/22 Digoxin [Lanoxin] 125 mcg PO DAILY 04/28/22 04/28/22 Furosemide [Lasix] 20 mg PO DAILY 04/28/22 04/28/22 Levothyroxine Sodium 88 mcg PO 04/28/22 [Levothyroxine] Warfarin [Coumadin] 2.5 mg PO 04/28/22 dilTIAZem HCL [Diltiazem 24Hr ER 120 mg PO 04/28/22 (Xr)] lisinopriL [Zestril] 5 mg 04/28/22 - Allergies Allergies/Adverse Reactions: Allergies Allergy/AdvReac Type Severity Reaction Status Date / Time codeine Allergy Hallucinati Verified 04/28/22 16:36 ons - Social History Does the pt smoke?: No Smoking Status: Never smoker Does the pt drink ETOH?: Yes Does the pt have substance abuse?: No - Immunizations Immunizations are current?: Yes - POLST Patient has POLST: No PD ED PE NORMAL - General General: Alert and oriented X 3, No acute distress, Well developed/nourished - HEENT HEENT: Atraumatic, Moist mucous membranes - Neck Neck: Supple, no meningeal sign, No adenopathy - Cardiac Cardiac: RRR, Strong equal pulses. No: No murmur (grade 5/6 systolic murmur) - Respiratory Respiratory: No respiratory distress, Clear bilaterally (Appears generally on labored though mildly tachypneic.) - Abdomen Abdomen: Normal bowel sounds, Soft - Derm Derm: Normal color, Warm and dry - Extremities Extremities: No deformity, No tenderness to palpate, Normal ROM s pain - Neuro Neuro: Alert and oriented X 3, health promoter 2-12 intact Eye Opening: Spontaneous Motor: Obeys Commands Verbal: Oriented GCS Score: 15 Results - Vitals Vitals: Vital Signs - 24 hr 04/28/22 04/28/22 04/28/22 16:21 16:57 17:37 Temperature 36.9 C Heart Rate 68 59 L 62 Respiratory 16 18 18 Rate Blood Pressure 194/68 H 178/79 H 175/65 H O2 Saturation 80 L 97 99 If not protocol 3 3 : Oxygen Flow, liters/minute 04/28/22 04/28/22 04/28/22 18:03 19:24 19:44 Temperature Heart Rate 59 L 58 L 57 L Respiratory 18 18 24 Rate Blood Pressure 172/74 H 159/63 H 158/71 H O2 Saturation 100 98 98 If not protocol 3 3 4 : Oxygen Flow, liters/minute Oxygen O2 Source Nasal cannula Oxygen Flow Rate 3 - EKG (time done) 1748 Rate: Rate (enter#) (57) Rhythm: NSR [place]: Other Intervals: Prolonged [place], Prolonged QT Ischemia: Q waves (anterior leads) Compare to prior EKG: Old EKG unavailable Computer interpretation: Agree with computer - Labs Labs: Laboratory Tests 04/28/22 04/28/22 04/28/22 16:43 16:43 16:43 WBC 12.7 H RBC 4.75 Hgb 14.3 Hct 44.1 MCV 92.8 MCH 30.1 MCHC 32.4 RDW 12.7 Plt Count 351 MPV 8.9 Neut # (Auto) 10.8 H Lymph # (Auto) 0.7 L [place] # (Auto) 1.0 Eos # (Auto) 0.0 Baso # (Auto) 0.0 Absolute Nucleated RBC 0.00 Nucleated RBC % 0.0 PT 111.5 H INR > 10.0 H* Sodium 135 Potassium 4.0 Chloride 88 L Carbon Dioxide 30 Anion Gap 17.0 H BUN 25 H Creatinine 0.8 Estimated GFR (MDRD) 68 L Glucose 137 H Calcium 9.6 Total Bilirubin 1.4 H AST 47 H ALT 31 Alkaline Phosphatase 79 B-Natriuretic Peptide Total Protein 9.0 H Albumin 4.2 Globulin 4.8 H Albumin/Globulin Ratio 0.9 L Lipase 77 H TSH Free T4 Nasal Adenovirus (PCR) Nasal B. parapertussis DNA (PCR) Nasal Coronavir 229E PCR Nasal Coronavir HKU1 PCR Nasal Coronavir NL63 PCR Nasal Coronavir OC43 PCR Nasal Enterovir/Rhinovir PCR Nasal Influenza B PCR Nasal Influenza A PCR Nasal Parainfluen 1 PCR Nasal Parainfluen 2 PCR Nasal Parainfluen 3 PCR Nasal Parainfluen 4 PCR Nasal RSV (PCR) Nasal B.pertussis DNA PCR Nasal C.pneumoniae (PCR) [place] Human Metapneumo PCR Nasal M.pneumoniae (PCR) Nasal SARS-CoV-2 (PCR) Last Dose Date UNKNOWN Last Dose Time UNKNOWN Digoxin 1.0 04/28/22 04/28/22 04/28/22 16:43 16:43 16:43 WBC RBC Hgb Hct MCV MCH MCHC RDW Plt Count MPV Neut # (Auto) Lymph # (Auto) [place] # (Auto) Eos # (Auto) Baso # (Auto) Absolute Nucleated RBC Nucleated RBC % PT INR Sodium Potassium Chloride Carbon Dioxide Anion Gap BUN Creatinine Estimated GFR (MDRD) Glucose Calcium Total Bilirubin AST ALT Alkaline Phosphatase B-Natriuretic Peptide 772 H Total Protein Albumin Globulin Albumin/Globulin Ratio Lipase TSH 12.42 H Free T4 1.33 Nasal Adenovirus (PCR) NOT DETECTED Nasal B. parapertussis DNA (PCR) NOT DETECTED Nasal Coronavir 229E PCR NOT DETECTED Nasal Coronavir HKU1 PCR NOT DETECTED Nasal Coronavir NL63 PCR NOT DETECTED Nasal Coronavir OC43 PCR NOT DETECTED Nasal Enterovir/Rhinovir PCR DETECTED A Nasal Influenza B PCR NOT DETECTED Nasal Influenza A PCR NOT DETECTED Nasal Parainfluen 1 PCR NOT DETECTED Nasal Parainfluen 2 PCR NOT DETECTED Nasal Parainfluen 3 PCR NOT DETECTED Nasal Parainfluen 4 PCR NOT DETECTED Nasal RSV (PCR) NOT DETECTED Nasal B.pertussis DNA PCR NOT DETECTED Nasal C.pneumoniae (PCR) NOT DETECTED [place] Human Metapneumo PCR NOT DETECTED Nasal M.pneumoniae (PCR) NOT DETECTED Nasal SARS-CoV-2 (PCR) NOT DETECTED Last Dose Date Last Dose Time Digoxin - Rads (name of study) cxr Radiology: Final report received (Finding is suggestive of congestive heart failure. Underlying bibasilar small infiltrates cannot be excluded. No pneumothorax) CT abgio chest Radiology: Final report received (Most integrated CT. No central PE. Bilaterally probably infectious inflammatory pulmonary opacities most confluent at the bases. Moderate right greater than left pleural effusions.) PD Medical Decision Making - ED course Complexity details: reviewed results, re-evaluated patient, considered differential, d/w patient, d/w family ED course: 87-year-old female presents to the emergency department for evaluation of 1 week dry cough, shortness of air and feeling generally weak and unwell. Her son who is visiting her was sick with a URI and believes he gave it to her. Though the patient presents alert and otherwise well-appearing, her room air saturations were 80%. She was placed on 3 L nasal cannula and her saturations zulma to the mid 90s. When she is off nasal cannula for any length of time such as to use the restroom she quickly desaturates into the 70s and appears mildly dyspneic. The patient is a former smoker though she quit more than 20 years ago. She does not carry a history of COPD and take no inhalers that would typically be used in the management of COPD Here in the emergency department we did obtain a chest x-ray which suggested some mild volume overload versus early atelectasis/opacity. Given how hypoxic she was without oxygen, we did obtain a CT pulmonary angiogram to rule out a PE and it was negative for large central PE. However she does have bilateral pulmonary opacities mostly in the lower bases. She also has bilateral right greater than left pleural effusions. In order to treat the pulmonary opacity should/pneumonia she was administered ceftriaxone and azithromycin here in the ER. Because of the pleural effusions I did administer 20 mg of Lasix. The rest of her screening labs show a mildly elevated white count, mildly elevated BUN as well as a BNP of over 700. The hypoxia could be some mild congestive heart failure coupled with pneumonia. She on typically on 20 lasix daily. I did give her 40 mg lasix IV here in the ED. Patient did have a supratherapeutic INR greater than 10 on presentation. She is on coumadin for her hx of a-fib. She does not have any signs of bleeding. She was administered 5 mg of vitamin K orally. Her Coumadin will continue to be held. INR will be rechecked in the a.m. Unfortunately there are no beds available for admission here at [facility] therefore she will board in the ER until a bed is available overnight. Respiratory PCR is positive for rhinovirus though I do not believe it is causative of her excessive hypoxia. The pneumonia is being treated with antibiotics (ceftriaxone and azithromycin). Her BNP will continue to be trended after she received the Lasix today. She does continue to require supplemental hypoxia thus it is not safe to discharge her home. She will remain here until a bed is available. Per her son and the patient herself she wishes to be a full code. Patient will be signed out to my nighttime colleague to follow-up on any acute overnight events. I anticipate that the patient will be admitted formally to the wards in the a.m. when a bed becomes available. Departure - Departure Disposition: 66 [facility] DC/Xfer Clinical Impression: Hypoxia, Rhinovirus infection, Supratherapeutic international normalized ratio (INR), Bilateral pleural effusion Pneumonia Qualifiers: Pneumonia type: due to unspecified organism Laterality: bilateral Lung location: lower lobe of lung Qualified Code(s): J18.9 - Pneumonia, unspecified organism Condition: Poor
[2022-04-28 16:54] LABS: BASOPHILS % (AUTO) 0.2 %; EOSINOPHILS % (AUTO) 0.1 %; HCT - HEMATOCRIT 44.1 % (37.0-47.0); HGB - HEMOGLOBIN 14.3 g/dL (12.0-16.0); LYMPHOCYTES # (AUTO) 0.7 10^3/uL (1.5-3.5); LYMPHOCYTES % (AUTO) 5.6 %; MEAN CORPUSCULAR HEMOGLOBIN 30.1 pg (27.0-31.0); MEAN CORPUSCULAR HGB CONC 32.4 g/dL (32.0-36.0); MEAN CORPUSCULAR VOLUME 92.8 fL (81.0-99.0); MEAN PLATELET VOLUME 8.9 fL (7.9-10.8); MONOCYTES % (AUTO) 7.6 %; NEUTROPHILS # (AUTO) 10.8 10^3/uL (1.5-6.6); NEUTROPHILS % (AUTO) 85.2 %; PLT - PLATELET COUNT 351 10^3/uL (130-450); RED BLOOD COUNT 4.75 10^6/uL (4.20-5.40); RED CELL DISTRIBUTION WIDTH 12.7 % (12.0-15.0); WHITE BLOOD COUNT 12.7 x10^3/uL (4.8-10.8)
--- NOTE | 2022-04-28 17:02 | XRAY Report ---
PROCEDURE: Chest 1 View X-Ray INDICATIONS: chest pain TECHNIQUE: One view of the chest was acquired. COMPARISON: 09/05/2016. FINDINGS: Surgical changes and devices: None. Lungs and pleura: There is pulmonary vascular congestion. Right greater than left bilateral pleural effusion is seen with bibasilar infiltrate/atelectasis. Pulmonary edema is also noted. Mediastinum: Tortuous thoracic aorta is seen. Heart size is enlarged.. Bones and chest wall: No suspicious bony lesions. Overlying soft tissues appear unremarkable. IMPRESSION: Finding is suggestive of CHF. Underlying bibasilar small infiltrates cannot be excluded. No pneumotho rax. Reviewed by: Aleksander Lombardi MD on 04/28/2022 5:01 PM PST Approved by: Aleksander Lombardi MD on 04/28/2022 5:01 PM PST Station ID: [id number]
[2022-04-28 17:05] LABS: PT - PROTHROMBIN TIME 111.5 secs (9.9-12.6)
[2022-04-28 17:14] LABS: ALBUMIN 4.2 g/dL (3.2-5.5); ALBUMIN/GLOBULIN RATIO 0.9 (1.0-2.2); ALKALINE PHOSPHATASE 79 IU/L (42-121); ALT ALANINE AMINOTRANSFERASE 31 IU/L (10-60); AST ASPARTATE AMINOTRANSFERASE 47 IU/L (10-42); BILIRUBIN,TOTAL 1.4 mg/dL (0.2-1.0); BUN - BLOOD UREA NITROGEN 25 mg/dL (6-20); CALCIUM 9.6 mg/dL (8.5-10.3); CARBON DIOXIDE - CO2 30 mmol/L (21-32); CHLORIDE 88 mmol/L (101-111); CREATININE 0.8 mg/dL (0.4-1.0); GFR - MDRD 68 (>89); GLUCOSE 137 mg/dL (70-100); LIPASE 77 U/L (22-51); SODIUM 135 mmol/L (135-145)
[2022-04-28 17:17] LABS: INR > 10.0 (0.8-1.2)
[2022-04-28 17:27] LABS: THYROID STIMULATING HORMONE 12.42 uIU/mL (0.34-5.60)
[2022-04-28 17:29] LABS: FREE T4 (FREE THYROXINE) 1.33 ng/dL (0.58-1.64)
[2022-04-28 18:04] LABS: B. PARAPERTUSSIS- RESP PCR PAN NOT DETECTED; B. PERTUSSIS- RESP PCR PANEL NOT DETECTED; C. PNEUMONIAE- RESP PCR PANEL NOT DETECTED; CORONAVIRUS 229E-RESP PCR NOT DETECTED; CORONAVIRUS HKU1-RESP PCR NOT DETECTED; CORONAVIRUS NL63-RESP PCR NOT DETECTED; CORONAVIRUS OC43-RESP PCR NOT DETECTED; HUMAN METAPNEUMOVIRUS NOT DETECTED; INFLUENZA A- RESP PCR PANEL NOT DETECTED; INFLUENZA B - RESP PCR PANEL NOT DETECTED; M. PNEUMONIAE- RESP PCR PANEL NOT DETECTED; PARAINFLUENZA VIRUS 1 NOT DETECTED; PARAINFLUENZA VIRUS 2 NOT DETECTED; PARAINFLUENZA VIRUS 3 NOT DETECTED; PARAINFLUENZA VIRUS 4 NOT DETECTED; RHINOVIRUS/ENTEROVIRUS DETECTED; RSV- RESP PCR PANEL NOT DETECTED; SARS-CoV-2 -RESP PCR PANEL NOT DETECTED
[2022-04-28] MEDS ORDERED: iohexoL-300 100 ML VIAL ONE (18:37)
[2022-04-28] MEDS ORDERED: PHYTONADIONE 10 MG/ML AMP PO ONE (18:57)
[2022-04-28] MEDS ORDERED: CHERRY SYRUP 10 ML UDC PO ONE (18:57)
[2022-04-28] MEDS ORDERED: iohexoL-300 100 ML VIAL IVP ONE (19:09)
--- NOTE | 2022-04-28 19:44 | CT Report ---
PROCEDURE: ANGIO CHEST W/WO INDICATIONS: hypoxia; r/o PE CONTRAST: 60ml omni 300 TECHNIQUE: After the administration of intravenous contrast, 2 mm axial images were acquired from the pulmonary apices to the posterior costophrenic angles during the arterial phase. In addition, 1 mm lung kernel and 5 mm soft tissue kernel reconstructions were performed. 3-dimensional coronal oblique maximum int ensity projection (MIP) reformats, 8 mm axial MIP, and 5 mm coronal and sagittal MPR reformats were t hen performed through the thorax. For radiation dose reduction, the following was used: automated exp osure control, adjustment of mA and/or kV according to patient size. COMPARISON: None FINDINGS: Image quality: Motion degradation Lungs and pleura: Multifocal opacities and right greater than left pleural effusions. Basal suspected atelectasis. Opacities are most confluent at the bases. Mediastinum, heart, and esophagus: No central pulmonary embolism. The distal arteries are difficult t o evaluate. No hiatal hernia. Borderline large heart. Biatrial enlargement. Coronary and annular calcifications. No pathologic adenopathy by size criteria. Chest wall and thyroid: Overall unremarkable Upper abdomen: Not well assessed on these arterial phase images, no gross abnormality. Probable splen ic and hepatic granulomas. Bones: No acute or suspicious osseous abnormality. Exaggerated thoracic kyphosis. IMPRESSION: Motion degraded CT. No central pulmonary embolism. Bilateral, probably infectious or inflammatory pulmonary opacities, most confluent at the bases. Mode rate right greater than left pleural effusions. Consider future imaging surveillance to assess for re solution. Other findings as above. Reviewed by: Frederic Jeffrey MD on 04/28/2022 7:42 PM PST Approved by: Frederic Jeffrey MD on 04/28/2022 7:42 PM PST Station ID: [id number]
[2022-04-28] MEDS ORDERED: AZITHROMYCIN INJ 500 MG in SODIUM CHLORIDE 0.9% 250 ML IV STA (19:53)
[2022-04-28] MEDS ORDERED: cefTRIAXone 2 GM in SODIUM CHLORIDE 0.9% MINIBAG 100 ML IV STA (19:53)
[2022-04-28] MEDS ORDERED: FUROSEMIDE 20 MG/2 ML VIAL IVP STA ×2 (19:55→21:44)
[2022-04-28] MEDS ORDERED: cefTRIAXone 2 GM VIAL ONE (20:33)
[2022-04-28] MEDS ORDERED: ACETAMINOPHEN 500 MG TABLET PO PRN (21:34)
[2022-04-28] MEDS ORDERED: ONDANSETRON 4 MG/2 ML VIAL IVP PRN (21:34)
[2022-04-29 05:25] LABS: INR 2.3 (0.8-1.2)
[2022-04-29 05:29] LABS: ALBUMIN 3.4 g/dL (3.2-5.5); ALBUMIN/GLOBULIN RATIO 0.8 (1.0-2.2); BILIRUBIN,TOTAL 0.8 mg/dL (0.2-1.0); CALCIUM 8.6 mg/dL (8.5-10.3); CREATININE 0.6 mg/dL (0.4-1.0); TOTAL PROTEIN 7.6 g/dL (6.7-8.2)
[2022-04-29 05:32] LABS: BASOPHILS % (AUTO) 0.3 %; EOSINOPHILS % (AUTO) 0.1 %; HCT - HEMATOCRIT 41.6 % (37.0-47.0); HGB - HEMOGLOBIN 13.1 g/dL (12.0-16.0); LYMPHOCYTES # (AUTO) 0.6 10^3/uL (1.5-3.5); LYMPHOCYTES % (AUTO) 4.2 %; MEAN CORPUSCULAR HEMOGLOBIN 30.5 pg (27.0-31.0); MEAN CORPUSCULAR HGB CONC 31.5 g/dL (32.0-36.0); MEAN CORPUSCULAR VOLUME 96.7 fL (81.0-99.0); MEAN PLATELET VOLUME 8.9 fL (7.9-10.8); MONOCYTES # (AUTO) 1.3 10^3/uL (0.0-1.0); MONOCYTES % (AUTO) 8.9 %; NEUTROPHILS % (AUTO) 84.9 %; PLT - PLATELET COUNT 301 10^3/uL (130-450); WHITE BLOOD COUNT 14.1 x10^3/uL (4.8-10.8)
[2022-04-29] MEDS ORDERED: LEVOTHYROXINE 88 MCG TABLET PO ONE (05:38)
[2022-04-29] MEDS: LEVOTHYROXINE 88 MCG TABLET PO SCH (06:46)
[2022-04-29] MEDS ORDERED: PANTOPRAZOLE 40 MG TABLET PO SCH (07:00)
[2022-04-29] MEDS ORDERED: cefTRIAXone 1 GM VIAL ONE (08:06)
[2022-04-29] MEDS: cefTRIAXone 1 GM in SODIUM CHLORIDE 0.9% MINIBAG 100 ML IV SCH (08:47)
--- NOTE | 2022-04-29 09:05 | ED Physician Documentation ---
ED Addendum - Addendum Addendum: 04/29/22 09:02Nursing alerted me that the patient was seeming less responsive. She had been apparently sleeping overnight. Her monitor she has been on is showing sinus rhythm with good blood pressure and good oxygenation at 98 to 99%. No apparent distress. Unlabored breathing. On the patient does open her eyes to stimulus but is nonverbal. She does appear to have reasonable respiratory effort. Again oxygenation is 98 to 99% on 4 L nasal cannula. Bedside fingerstick blood sugar showed 118. She had just had electrolytes and blood count done at 5 AM without any notable abnormality. Her INR recheck had improved to 2.3. At this point we will have respiratory therapy obtain an ABG to look for potential hypoventilation. She may have gotten an elevated CO2 level which could fit the picture. At this point pending the ABG results. Meanwhile she does seem stable with vital signs. Review of the note from yesterday showed the patient to be full code. We will reassess with the labs here in a few minutes.
[2022-04-29 09:06] LABS: ABG BASE EXCESS 8.6 mmol/L (-2.0-3.0); ABG PO2 94 mmHg (80-100)
[2022-04-29 09:07] LABS: ABG OXYGEN SATURATION 97 % (94-98); ALLEN TEST POSITIVE
[2022-04-29 09:09] LABS: ABG PCO2 106 mmHg (34-45); ABG TCO2 44.2 MMOL/L (21.0-29.0)
[2022-04-29] MEDS: AZITHROMYCIN INJ 500 MG in SODIUM CHLORIDE 0.9% 250 ML IV SCH (09:47)
[2022-04-29] MEDS ORDERED: SODIUM CHLORIDE FLUSH 0.9% 10 ML SYRINGE IVP PRN (11:09)
[2022-04-29] MEDS ORDERED: ONDANSETRON ODT 4 MG TABLET TL PRN (11:09)
[2022-04-29] MEDS ORDERED: oxyCODONE 5 MG TABLET PO PRN (11:09)
[2022-04-29] MEDS ORDERED: ACETAMINOPHEN 325 MG TABLET PO PRN (11:09)
[2022-04-29] MEDS ORDERED: ONDANSETRON 4 MG/2 ML VIAL IVP PRN (11:09)
--- NOTE | 2022-04-29 11:24 | HISTORY & PHYSICAL EXAMINATION ---
Chief Complaint - Chief Complaint Chief Complaint: Cough, dizziness, shortness of breath for a Week History of Present Illness - Admitted From Admitted From:: Home - History Obtained From Records Reviewed: [facility] History obtained from: Dr. Alarcon and son, some from patient Exam Limitations: Patient's deafness - History of Present Illness HPI Comment/Other: 87-year-old elderly female who still lives in her own home. Has a history of aortic stenosis by echocardiogram, and chronic atrial fibrillation for which she is on diltiazem, digoxin, Lasix and lisinopril. Anticoagulation is with Coumadin. Her son did not know that she had aortic stenosis. He states that he really has not seen her, in person, for close to 2 years because of COVID. They have a strained relationship. He lives in [place]. But they do text almost on a daily basis. A few weeks ago he really wanted to reconnect with his mom but she is "a private person". He would call up and say he wanted to see her and she would refuse to let him come in. But he was doing things like [place] and fixing her fence. Or he would take her garbage [facility]. She called him last Sunday saying that her chronic shortness of breath was much worse than usual. Her doctor had given her some new pills to try and she was not sure she wanted to take them. But he convinced her to take them. On Sunday she thought she was better but on she called to tell them she was worse and that she probably needed to come to the hospital. He was not able to come see her until Sunday. By then she changed her mind and it took until that afternoon to convince her to come in. She has always been "huffing and puffing" person. She stopped smoking about 35 years ago but smoked ferociously. He also thinks that she is probably been drinking too much. When he went to the [facility] he dropped off bottles of champagne. She lives alone so the bottles could have only come from her. She presented by private vehicle around 4 in the afternoon April 28 reporting that she was short of breath, dizzy, and had a chronic dry cough. It was getting worse and worse since April 23. Denies fever, chills, sore throat. She was eating very little. No phlegm production. No abdominal pain. No urgency or frequency or diarrhea. Her son had an upper respiratory tract infection and was worried that he had given her his infection. She is a former smoker that quit 20 years ago. But no history of COPD. In the emergency room blood pressure was 194/68. Temperature was 36.9. Heart rate was 110. Respirations were 16 and she was 80% on room air. She was very hard of hearing so it made her exam and interview difficult. 3 L nasal cannula increased her O2 sat to 95%. She was alert and oriented. Had a 5/6 systolic murmur. Labored breathing but clear bilaterally. Normal bowel sounds. No pedal edema. BUN 25, creatinine 0.8. Total bili 1.4, AST 47. BNP 772. TSH 12.42. White cell count 12.7. Hemoglobin normal at 14.3. INR was greater than 10. Chest x- ray had a questionable infiltrate versus fluid overload. CTA of the chest was done with angiogram and she did not have pulmonary emboli but did have multifo chandler opacities and right greater than left pleural effusions. Basal atelectasis. Borderline enlarged heart. Biatrial enlargement. Her PCR viral panel was positive for enterovirus/rhinovirus. There were no beds available on the inpatient side so the patient was kept in the emergency room overnight. This morning the patient was presented to me now that we have beds available and the case was discussed at length with Dr. Alarcon. He is the emergency room provider that is taken over 4. Overnight she was given oxygen, vitamin K, and Lasix. She also received azithromycin and Rocephin. Per nursing the patient was comfortable overnight. However when Dr. Alarcon saw her this morning she was obtunded and poorly responsive. Glucose was 118. pH was 7.20. PCO2 106. PO2 94. Base excess 8.6 positive. She was on nasal cannula 1-1/2 L. The patient does not take any sedating drugs at home. And she did not receive any sedating drugs in the emergency room. Dr. Alarcon put her on BiPAP. She is slowly waking up. This morning's labs showed to have a white cell count of 14.1. An INR of 2.3. BUN 20. Creatinine 0.6. Glucose 118. History - Past Medical History Cardiovascular: reports: Atrial fibrillation, Valve disorder (. EF 70 to 75%. LAE. Peak/mean 36/17. Valve area 1.29. Moderate pulmonic regurgitation. Mild MR. RVSP high at 47.) Respiratory: reports: Pneumonia, Shortness of breath Neuro: reports: None Endocrine/Autoimmune: reports: HyPOthyroidism GI: reports: None VP CORPORATE DEVELOPMENT: reports: Other () : reports: Incontinence, Frequency HEENT: reports: Chronic vision loss, Chronic hearing loss (hearing aids), Other Psych: reports: None Musculoskeletal: reports: Rheumatoid arthritis Derm: reports: None MRSA Hx?: No - Past Surgical History /VP CORPORATE DEVELOPMENT: reports: section, Tubal ligation Cardiovascular: reports: Other HEENT: reports: Cataracts - Family & Social History Family History Comment/Other: Dad of heart in his 50s. Had a massive heart attack. Mom of heart failure in her 80s. No siblings. 2 sons. They have high blood pressure and that is about it. Living arrangement: At home Living Situation: Alone Social History Notes: Smoked tremendously until 35 years ago. But son cannot tell me how much. Patient is too deaf to hear my question. She denies alcohol use but son says that he threw awake quite a few champagne bottles this last month. No history of recreational subs abuse. for many years now. - POLST Patient has POLST: No Meds/Allgy - Home Medications Home Medications: Ambulatory Orders Medication Instructions Recorded Confirmed Cholecalciferol [Vitamin D3] 25 mcg PO DAILY 04/28/22 04/28/22 Digoxin [Lanoxin] 125 mcg PO DAILY 04/28/22 04/28/22 Furosemide [Lasix] 20 mg PO DAILY 04/28/22 04/28/22 Warfarin [Coumadin] 5 mg PO MOWEFR 04/28/22 04/29/22 dilTIAZem HCL [Diltiazem 24Hr ER 120 mg PO DAILY 04/28/22 04/29/22 (Xr)] lisinopriL [Zestril] 5 mg PO DAILY 04/28/22 04/29/22 Levothyroxine [Synthroid] 100 mcg PO QDAC 04/29/22 04/29/22 Warfarin [Coumadin] 2.5 mg PO SUTUTHSA 04/29/22 04/29/22 - Allergies Allergies/Adverse Reactions: Allergies Allergy/AdvReac Type Severity Reaction Status Date / Time codeine Allergy Hallucinati Verified 04/28/22 16:36 ons Review of Systems - Other Findings Other Findings: She is unable to provide a review of systems due to her deafness, hearing aids not working, but she does tell me that her shortness of breath has been getting tremendously worse and she cannot take it anymore. She has not been able to eat very much because she has dentures and they are not working. Her son reports that she is also tremendous amount of weight since he last physically saw her a year and a half ago. But that is all he can provide. He tells me that she has been dyspneic on exertion with a chronic daily cough for decades. Prior Level of Functionality: Her son reports that she is also tremendous amount of weight since he last physically saw her a year and a half ago. But that is all he can provide. He tells me that she has been dyspneic on exertion with a chronic daily cough for decades. Son reports that she is independent. Lives in her own home. The house is neat and tidy. There is no garbage or rotting food. Mom is clean. Just really skinny. His brother comes by every 3 weeks to bring groceries, vacuum the house, and make sure everything is okay. She is not on oxygen, she does not use a walker. Exam - Vital Signs Reviewed Vital Signs: Yes Vital Signs: Vital Signs x48h Temp Pulse Resp BP Pulse Ox O2 Flow Rate 04/29/22 11:00 62 23 157/81 H 98 04/29/22 10:30 62 22 147/64 H 99 04/29/22 10:00 66 27 H 149/56 H 96 04/29/22 09:30 61 18 157/56 H 98 04/29/22 09:24 65 14 177/54 H 95 04/29/22 09:09 59 L 04/29/22 08:44 97.7 C H 65 18 175/67 H 98 2 04/29/22 08:20 59 L 18 127/46 L 99 3 04/29/22 07:55 57 L 18 129/45 L 99 3 04/29/22 07:19 60 18 176/66 H 99 3 04/29/22 04:00 37 C 67 24 102/70 97 3 - Physical Exam General Appearance: positive: Alert, Mild distress, Other (4 feet 11 inches, very cachectic, bright eyed elderly woman at 44 kg. Profoundly deaf. Hearing aids in place but not really working) Eyes Bilateral: positive: EOMI ENT: positive: Dry mucous membranes (Mild. Not severe) Neck: positive: No JVD. negative: Stiff neck Respiratory: positive: Wheezes (Faint and scattered. She has very, very quiet lungs. O2 sats drop to 82% when I take off her BiPAP for her to talk to me) Cardiovascular: positive: Regular rate & rhythm, Systolic murmur (Harsh systolic murmur, heard at the apex and tracked up to the right upper sternal border w here is very loud. Then radiates to the carotids) Abdomen: positive: Non-tender, No organomegaly, Nml bowel sounds, No distention, Other (She cannot remember her last bowel movement) Skin: positive: Warm, Dry, Pallor Extremities: positive: Full ROM, No pedal edema, Other (Loss of muscle mass in arms and legs, they are painfully thin) Neurologic/Psychiatric: positive: Motor nml, Other (I cannot assess if she knows where she is. She thinks I am a famous [place] doctor that she read about and see me on TV and she is thrilled that I am taking care of her). negative: CN's nml (2-12) (Profoundly deaf, can barely hear me) Conclusion/Plan - Problem List (1) Acute respiratory failure with hypercapnia Conclusion/Plan: It is unclear why her respiratory rate slowed down some much to make her hypercapnic. Oxygen levels were acceptable. She is not taking any opioids or sedating medication. In the emergency room she did not receive any such medication. Plan: Inpatient ICU stay Continue BiPAP ordered in the ICU Review blood gases after BiPAP stabilization Review old records to see if she has history of stroke (2) Pneumonia Conclusion/Plan: The patient presents as shortness of breath, cough. She seems to have caught a bug from her son. Chest x-ray confirmed pneumonia as does CT scan. But she is also positive for viral PCR. She is being treated empirically as a possible secondary bacterial pneumonia with antibiotics. This infection, in turn, has decompensated her A. fib which in turn decompensated her aortic stenosis. Plan: Azithromycin and Rocephin to continue Secretion clearance Mucinex Qualifiers: Pneumonia type: due to unspecified organism Laterality: bilateral Lung location: lower lobe of lung Qualified Code(s): J18.9 - Pneumonia, unspecified organism (3) Atrial fibrillation with RVR Conclusion/Plan: Was present when she came in by ambulance. At that time her heart rate was 110. Since that time her heart rates been in solidly in the 60s. She is controlled. She is anticoagulated with Coumadin. Rate control Is with diltiazem. Since that first heart rate of 110, rate is considered controlled. Plan: Continue diltiazem, and wait to resume Coumadin tomorrow. 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 He is not a formal power of claim attorney. He states that he wants his mom to be full code and burst into tears. He feels like he has not had a chance to make things right with her and wants that chance. I explained to him that if we have to resuscitate her it would be a very poor outcome at best. She will most likely not survive the event, and if she does, she is so frail I do not know what cognitive or physical residual she will have. In spite of that, he still wants full CODE STATUS. He will talk about it with his brother. I tried to discuss it with her but she is very fixated on the fact that I am a famous [employer] doctor and could not focus on my questions. - Lab Results Lab results reviewed: Yes Fish Bones: 04/29/22 05:13 04/29/22 05:13 - Diagnostic Imaging Results Diagnostic Imaging Results: positive: Final report reviewed Diagnostic Imaging Results Comments: Chest x-ray had a questionable infiltrate versus fluid overload. CTA of the chest was done with angiogram and she did not have pulmonary emboli but did have multifocal opacities and right greater than left pleural effusions. Basal atelectasis. Borderline enlarged heart. Biatrial enlargement. - EKG Results EKG Interpreted Independently: No Core Measures - Anticipated LOS I expect patient to be DC'd or transferred within 96 hours.: Yes - DVT/VTE - Prophylaxis VTE/DVT Prophylaxis med ordered at admit?: Yes
[2022-04-29 12:02] LABS: ABG PH 7.23 (7.35-7.45); ABG PO2 86 mmHg (80-100)
[2022-04-29 12:03] LABS: ABG BASE EXCESS 7.4 mmol/L (-2.0-3.0); ABG HCO3 38.5 mmol/L (22.0-26.0); ABG OXYGEN SATURATION 96 % (94-98); ALLEN TEST POSITIVE
[2022-04-29 12:05] LABS: ABG PCO2 93 mmHg (34-45)
[2022-04-29 12:06] LABS: ABG TCO2 41.3 MMOL/L (21.0-29.0)
--- NOTE | 2022-04-29 12:57 | PHARMACY PROGRESS NOTE ---
- Best Possible Medication History Admit Date and Time: 04/29/22 1120 Processed by: Nursing Medication History completed: Yes Secondary Source(s): Pharmacy records, Insurance records As the person ultimately responsible for medication therapy, providers are able to order a medication from an existing home medication list in [facility] via the "Reconcile Routine" prior to Confirmation of that medication by student support services director. Such practice is discouraged except when the physician, in their clinical judgment, deems that a medical need exists for a medication without regard to previous use.
[2022-04-29] MEDS: DIGOXIN 125 MCG TABLET PO SCH (14:35)
[2022-04-29] MEDS: lisinopriL 5 MG TABLET PO SCH (14:35)
[2022-04-29] MEDS: diltiaZEM CD 120 MG CAPSULE PO SCH (14:35)
[2022-04-29] MEDS: FUROSEMIDE 20 MG TABLET PO SCH (14:35)
--- NOTE | 2022-04-29 15:18 | CT Report ---
PROCEDURE: CT brain without contrast INDICATIONS: new obtundation w Pc02 high TECHNIQUE: Noncontrast 4.5 mm thick angled axial sections acquired from the foramen magnum to the vertex. For r adiation dose reduction, the following was used: automated exposure control, adjustment of mA and/or kV according to patient size. COMPARISON: None. FINDINGS: Image quality: Excellent. CSF spaces: Basal cisterns are patent. No extra-axial fluid collections. Ventricles are normal in size and shape. Brain: No midline shift. No intracranial masses or hemorrhage. Vargas-white matter interface is norm al. Moderate atrophy and multifocal white matter chronic ischemic change noted. Atherosclerotic vasc ular calcification noted in the cavernous segments of both internal carotid arteries as well as the i ntradural vertebral arteries. Skull and face: Calvarium and visualized facial bones are intact, without suspicious lesions. Nasal bone fractures, uncertain age Sinuses: Right maxillary retention cyst in left maxillary sinus air-fluid level. Bilateral mastoid fl uid noted. No erosions IMPRESSION: Atrophy and chronic ischemic change without intracranial hemorrhage or mass effect. Bilateral mastoid effusions may be inflammatory or postinflammatory. Air-fluid level in the left maxillary sinus also may reflect sinusitis Incidental nasal bone fractures, uncertain age Reviewed by: Jasson Pastrana MD on 04/29/2022 2:16 PM AKST Approved by: Jasson Pastrana MD on 04/29/2022 2:16 PM AKST Station ID: [id number]
[2022-04-29] MEDS: SODIUM CHLORIDE FLUSH 0.9% 10 ML SYRINGE IVP SCH (18:38)
[2022-04-29 21:05] LABS: ABG PH 7.32 (7.35-7.45)
[2022-04-29 21:06] LABS: ABG BASE EXCESS 14.3 mmol/L (-2.0-3.0); ABG HCO3 44.6 mmol/L (22.0-26.0); ABG OXYGEN SATURATION 89 % (94-98); ABG PO2 56 mmHg (80-100); ALLEN TEST POSITIVE
[2022-04-29 21:07] LABS: ABG RESPIRATORY RATE 16 b/min
[2022-04-29 21:12] LABS: ABG PCO2 88 mmHg (34-45); ABG TCO2 47.3 MMOL/L (21.0-29.0)
[2022-04-30 08:09] LABS: CALCIUM 8.8 mg/dL (8.5-10.3); CREATININE 0.7 mg/dL (0.4-1.0); POTASSIUM 3.8 mmol/L (3.5-5.0)
[2022-04-30] MEDS: SODIUM CHLORIDE FLUSH 0.9% 10 ML SYRINGE IVP SCH ×3 (08:26→18:42)
[2022-04-30] MEDS: LEVOTHYROXINE 88 MCG TABLET PO SCH (08:31)
[2022-04-30] MEDS: PANTOPRAZOLE 40 MG TABLET PO SCH (08:31)
[2022-04-30] MEDS: AZITHROMYCIN INJ 500 MG in SODIUM CHLORIDE 0.9% 250 ML IV SCH (08:36)
[2022-04-30] MEDS: diltiaZEM CD 120 MG CAPSULE PO SCH (08:36)
[2022-04-30] MEDS: cefTRIAXone 1 GM in SODIUM CHLORIDE 0.9% MINIBAG 100 ML IV SCH (08:36)
[2022-04-30] MEDS: DIGOXIN 125 MCG TABLET PO SCH (08:36)
[2022-04-30] MEDS: lisinopriL 5 MG TABLET PO SCH (08:37)
[2022-04-30] MEDS: FUROSEMIDE 20 MG TABLET PO SCH (08:37)
[2022-04-30] MEDS ORDERED: POTASSIUM CHLORIDE 20 MEQ TABLET PO ONE (08:51)
[2022-04-30 09:21] LABS: CALCIUM, IONIZED 1.12 mmol/L (1.15-1.33); VBG PH 7.377 (7.31-7.41)
[2022-04-30 09:30] LABS: MAGNESIUM 1.9 mg/dL (1.7-2.8); PHOSPHORUS 2.2 mg/dL (2.5-4.6)
[2022-04-30 10:17] LABS: BASOPHILS % (AUTO) 0.3 %; EOSINOPHILS # (AUTO) 0.1 10^3/uL (0.0-0.7); EOSINOPHILS % (AUTO) 0.8 %; HCT - HEMATOCRIT 40.3 % (37.0-47.0); HGB - HEMOGLOBIN 12.3 g/dL (12.0-16.0); LYMPHOCYTES # (AUTO) 0.6 10^3/uL (1.5-3.5); LYMPHOCYTES % (AUTO) 5.4 %; MEAN CORPUSCULAR HEMOGLOBIN 30.4 pg (27.0-31.0); MEAN CORPUSCULAR HGB CONC 30.5 g/dL (32.0-36.0); MEAN CORPUSCULAR VOLUME 99.8 fL (81.0-99.0); MONOCYTES # (AUTO) 1.1 10^3/uL (0.0-1.0); MONOCYTES % (AUTO) 9.5 %; NEUTROPHILS # (AUTO) 9.5 10^3/uL (1.5-6.6); PLT - PLATELET COUNT 273 10^3/uL (130-450); RED BLOOD COUNT 4.04 10^6/uL (4.20-5.40); RED CELL DISTRIBUTION WIDTH 12.7 % (12.0-15.0); WHITE BLOOD COUNT 11.4 x10^3/uL (4.8-10.8)
[2022-04-30] MEDS: NEUTRA-PHOS 250 MG TABLET PO SCH ×2 (10:38→12:15)
[2022-05-01] MEDS: SODIUM CHLORIDE FLUSH 0.9% 10 ML SYRINGE IVP SCH ×3 (00:25→17:07)
[2022-05-01 05:09] LABS: CALCIUM, IONIZED 1.14 mmol/L (1.15-1.33); VBG PH 7.351 (7.31-7.41)
[2022-05-01 05:14] LABS: BASOPHILS % (AUTO) 0.2 %; EOSINOPHILS # (AUTO) 0.2 10^3/uL (0.0-0.7); EOSINOPHILS % (AUTO) 1.7 %; HCT - HEMATOCRIT 42.2 % (37.0-47.0); HGB - HEMOGLOBIN 12.7 g/dL (12.0-16.0); LYMPHOCYTES # (AUTO) 0.7 10^3/uL (1.5-3.5); LYMPHOCYTES % (AUTO) 6.2 %; MEAN CORPUSCULAR HEMOGLOBIN 29.7 pg (27.0-31.0); MEAN CORPUSCULAR HGB CONC 30.1 g/dL (32.0-36.0); MEAN CORPUSCULAR VOLUME 98.8 fL (81.0-99.0); MEAN PLATELET VOLUME 9.2 fL (7.9-10.8); MONOCYTES % (AUTO) 8.9 %; NEUTROPHILS # (AUTO) 8.9 10^3/uL (1.5-6.6); NEUTROPHILS % (AUTO) 82.3 %; PLT - PLATELET COUNT 228 10^3/uL (130-450); RED BLOOD COUNT 4.27 10^6/uL (4.20-5.40); WHITE BLOOD COUNT 10.8 x10^3/uL (4.8-10.8)
[2022-05-01 05:23] LABS: CALCIUM 9.1 mg/dL (8.5-10.3); CREATININE 0.5 mg/dL (0.4-1.0); PHOSPHORUS 3.1 mg/dL (2.5-4.6); POTASSIUM 4.4 mmol/L (3.5-5.0)
[2022-05-01] MEDS: PANTOPRAZOLE 40 MG TABLET PO SCH (08:06)
[2022-05-01] MEDS: LEVOTHYROXINE 88 MCG TABLET PO SCH (08:06)
--- NOTE | 2022-05-01 08:09 | PROVIDER PROGRESS NOTE ---
Progress Note May 20, 2022 5 PM seen this morning and this afternoon. She has definitely improved between yesterday to today. Yesterday she was lethargic, struggling to breathe, needed BiPAP. She still needs BiPAP and will desaturate as well and has have hypercapnia. She has gotten to the point where she just now uses nasal cannula to maintain O2 sats. If she goes to room air O2 sats dropped into the 80s. However when she is asleep we give her BiPAP. This morning she was in bed, and this afternoon she is sitting upright in a chair. 45-minute conversation. She tells me that she is a loner. She prefers the company of her self above all else. A lot of it comes from the mistake she is made in life. She has had 5 husbands. She had 1 son with her second , and another son with yet another . 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 Son had said that he threw away a lot of champagne bottles and she denies that. She sees her older son and his every 2 weeks and they bring groceries to her house. Her younger son, Jerry, she does not see very often. She likes it that way. Both sons have personality problems. Damaso is a sober alcoholic. She said that he can be quite a drama cai. (Her words). She talks to them on the phone. They text. She is able to clean her own house. Cook. Bathe herself. She denies any falls. Because of her previous smoking history she has always had dyspnea on exertion. 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 So between smoking and her job, exercise always left her breathless. It got to the point that just walking slightly uphill was impossible to do. She is a chronic daily dry cough. But not severe. No phlegm production. In the last year shortness of breath is getting more severe. Simple activities like cooking or taking forever and her incredible effort. Between the dyspnea, and a gradual onset of anorexia, she just has not been eating very much. She said that she used to be "pleasingly pumped". In the last year she has become skin and bones. There is been no change in bowel habits. No abdominal pain. Forget early satiety, there is just no hunger. She has been having orthopnea. No edema. Chest will get uncomfortably tight at times. She denies syncope. She does not really feel like she has been having angina. She does not feel like her atrial fibrillation is any worse than usual. When I tell her what her weight is she is shocked. She did not realize how bad it was. In the days leading to this, she denies fever, chills, phlegm production. She did not have have a sore throat, runny nose, congested ears. Temperature is 36.8. Heart rate 72. Blood pressure 168/71. Since being in the ER, her RVR has resolved and she is controlled. Profoundly thin, very gaunt and cachectic elderly woman with profound deafness wearing hearing aids. She has lost a tremendous amount of muscle mass, and all of her tendons and ligaments and bony structures are very evident and a skeletal skull, rib cage, and prominent joint structure. The hearing aids are squealing the entire time she is speaking to me but her speech is lucid, good historian, and a very, very dry sense of humor. A lot of laughter in our conversation. She says that she spends her hours at home being on the computer. She just researches everything for the sure jodi of learning anything she can find. Neck is supple Lungs are clear. They are very quiet, and have prolonged and exhalation phase but there is no crackles, rhonchi or wheezing. Irregular rate and rhythm that is rate controlled. Blowing systolic murmur at the left lower sternal border, loudest at the right upper sternal border, and does radiate to her carotids. Abdomen is soft, hypoactive bowel sounds, nontender. This morning she ate about 25% of her breakfast. Occasionally coughs with liquids. She denies dysphagia. Had a bowel movement yesterday and today. Extremities have no edema. Again profoundly gaunt and cachectic with reduced muscle mass Neurologically she is alert, oriented to person place and time. Has been able to remember me each time. She finally says that I am "not that famous [place] doctor" that she thought I was. When she laughs when she says that. Profoundly deaf. Very weak. Sometimes loses her train of thought and can be forgetful. Lab: White cell count 11.4, hemoglobin 12.3, hematocrit 40.3, platelet 273 Sodium 139, potassium 3.8, BUN 20, creatinine 0.7, glucose 179, BNP 916 (was 772 yesterday) Assessment/plan: 1. Acute respiratory failure with hypercapnia and hypoxia. Initially was just hypercapnia. Mechanism of why she is hypercapnic is cannot completely clear. While she does have a history of COPD and smoking, she is not wheezing. She does not tripod. At this time my supposition is COPD, but no exacerbation. And I suspect that she has critical aortic stenosis by exam. Plan: Continue to use her home meds to control her CHF from aortic stenosis A-fib is controlled Continue BiPAP when sleeping 2. Multifocal pneumonia on chest x-ray. White cell count still elevated. She is still hypoxic. Blood cultures are without growth. No sputum cultures. Azithromycin and Rocephin day #2, antibiotics to continue Secretion clearance with Mucinex to continue 3. COPD without exacerbation on exam. I have not put her on steroids. She is on antibiotics. And there has been no wheezing to require albuterol or DuoNeb. 4. Atrial fibrillation, no longer RVR. Resume home Coumadin tomorrow 5. Aortic stenosis. Seen on previous echo, and certainly heard on physical exam. My supposition is that her aortic stenosis but is gradually progressive. On top of COPD has resulted in anorexia. I plan to keep her until May 02. At that time the hospitalist who is a also a plug maker will examine her, and we will be able to get an echo and we can give this june woman a better sense of what her prognosis is. 6. Unintentional weight loss. She does not give a history of neoplasm. She is not depressed and suicidal. She does not give a history of an eating disorder. 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 Nutrition services will come on service tomorrow. I hope to have a consult from them. 7. DO NOT RESUSCITATE status. When she was admitted, her son spoke up as her advocate. She says that she does not have a legal DURABLE POWER OF PROGRAM AIDE. When I tried to talk to her about CODE STATUS yesterday, she was too fatigued, and confused. Today she is alert, lucid, oriented. After discussing what resuscitation would mean, especially in the light of her weight loss, reduced functional status, she decides that she would like to be DO NOT RESUSCITATE.
[2022-05-01] MEDS ORDERED: WARFARIN 2.5 MG TABLET PO SCH (09:00)
[2022-05-01] MEDS: AZITHROMYCIN INJ 500 MG in SODIUM CHLORIDE 0.9% 250 ML IV SCH (09:54)
[2022-05-01] MEDS: cefTRIAXone 1 GM in SODIUM CHLORIDE 0.9% MINIBAG 100 ML IV SCH (09:55)
[2022-05-01] MEDS: DIGOXIN 125 MCG TABLET PO SCH (09:56)
[2022-05-01] MEDS: diltiaZEM CD 120 MG CAPSULE PO SCH (09:56)
[2022-05-01] MEDS: lisinopriL 5 MG TABLET PO SCH (09:56)
[2022-05-01] MEDS: CHOLECALCIFEROL 25 MCG TABLET PO SCH (09:56)
[2022-05-01] MEDS: FUROSEMIDE 20 MG TABLET PO SCH (09:56)
[2022-05-01] MEDS: MULTIVITAMIN W/MINERALS TABLET PO SCH (17:07)
--- NOTE | 2022-05-01 18:43 | PROVIDER PROGRESS NOTE ---
Progress Note May 01, 2022 6:32 PM Patient has been seen twice today. Both times she is upright in her chair. Stable. She needed BiPAP around 5 in the morning because of desaturation. Later changed over to nasal cannula when she was upright in her chair. Nutrition service has been a quite a bit of time talking her about her weight loss. Were starting to realize that she may have chosen a diet that was very restrictive on the basis of her reading things on the computer. Then she got so short of breath that she really did not want to cook even when her children brought her groceries. Active Medications Acetaminophen (Acetaminophen 325 Mg Tablet) 650 mg PO Q4HR PRN PRN Reason: Pain 1 to 4, or Fever Cholecalciferol (Cholecalciferol 25 Mcg Tablet) 25 mcg PO DAILY [facility] Last Admin: 05/01/22 09:56 Dose: 25 mcg Digoxin (Digoxin 125 Mcg Tablet) 125 mcg PO DAILY [facility] Last Admin: 05/01/22 09:56 Dose: 125 mcg Diltiazem HCl (Diltiazem Cd 120 Mg Capsule) 120 mg PO DAILY [facility] Last Admin: 05/01/22 09:56 Dose: 120 mg Furosemide (Furosemide 20 Mg Tablet) 20 mg PO DAILY [facility] Last Admin: 05/01/22 09:56 Dose: 20 mg Ceftriaxone Sodium 1 gm/ (Sodium Chloride) 100 mls @ 200 mls/hr IV DAILY [facility] Last Infusion: 05/01/22 10:39 Dose: Infused Levothyroxine Sodium (Levothyroxine 88 Mcg Tablet) 88 mcg PO QDAC [facility] Last Admin: 05/01/22 08:06 Dose: 88 mcg Lisinopril (Lisinopril 5 Mg Tablet) 5 mg PO DAILY [facility] Last Admin: 05/01/22 09:56 Dose: 5 mg Multivitamins/Minerals (Multivitamin W/Minerals Tablet) 1 tab PO DAILYWM [facility] Last Admin: 05/01/22 17:07 Dose: 1 tab Ondansetron HCl (Ondansetron Odt 4 Mg Tablet) 4 mg TL Q6HR PRN PRN Reason: Nausea / Vomiting Ondansetron HCl (Ondansetron 4 Mg/2 Ml Vial) 4 mg IVP Q6HR PRN PRN Reason: Nausea / Vomiting Oxycodone HCl (Oxycodone 5 Mg Tablet) 5 mg PO Q4HR PRN PRN Reason: Pain 5 to 7 Pantoprazole Sodium (Pantoprazole 40 Mg Tablet) 40 mg PO QDAC [facility] Last Admin: 05/01/22 08:06 Dose: 40 mg Sodium Chloride (Sodium Chloride Flush 0.9% 10 Ml Syringe) 10 ml IVP 0100,0900,1700 [facility] Last Admin: 05/01/22 17:07 Dose: 10 ml Sodium Chloride (Sodium Chloride Flush 0.9% 10 Ml Syringe) 10 ml IVP PRN PRN PRN Reason: NEEDED PER PROVIDER ORDERS Warfarin Sodium (Warfarin 2.5 Mg Tablet) 2.5 mg PO SuTuThSa@0900 [facility] Warfarin Sodium (Warfarin 2.5 Mg Tablet) 5 mg PO MOWE [facility] Last Admin: 05/01/22 09:58 Dose: 5 mg Cholecalciferol [Vitamin D3] 25 mcg PO DAILY 04/28/22 Digoxin [Lanoxin] 125 mcg PO DAILY 04/28/22 Furosemide [Lasix] 20 mg PO DAILY 04/28/22 Warfarin [Coumadin] 5 mg PO MOWEFR 04/28/22 dilTIAZem HCL [Diltiazem 24Hr ER (Xr)] 120 mg PO DAILY 04/28/22 lisinopriL [Zestril] 5 mg PO DAILY 04/28/22 Levothyroxine [Synthroid] 100 mcg PO QDAC 04/29/22 Warfarin [Coumadin] 2.5 mg PO SUTUTHSA 04/29/22 Exam: Temperature is 36.7. Heart rate 60. Blood pressure 130/48. Respirations 23. 99% saturated on 1 L. Profoundly gaunt and cachectic elderly female. No respiratory distress as she sits upright in a chair speaking to me. She has a bandage over her nose. This is because they protect her skin from the BiPAP mask pressure. Diminished breath sounds at the bases but no crackles. Overall lung sounds are quite quiet. Prolonged and exhalation. Tachypnea is only when she has to transition from chair to bed or bed to chair and she recovers quickly Irregular r rate and rhythm with a systolic ejection murmur that radiates to the carotids. Abdomen soft, nontender, normal bowel sounds. No masses palpable. Bowel movement today. She is using a pure wick and urine is yellow and clear. Sodium 145. Potassium 4.4. Carbon dioxide 39. BUN 21, creatinine 0.5. Venous pH is 7.35 White cell count 10.8. Hemoglobin 12.7. Hematocrit 42.2. Assessment/plan: 1. Acute respiratory failure with hypercapnia and hypoxia. Attributed to COPD, and aortic stenosis. I am in the process of trying to establish how severe her aortic stenosis is before I can quantify risk or treatment plan. She is currently still requiring oxygen at times. At this time, we do not have plans for her to go home with BiPAP.She is still in the ICU because she is requires intermittent BiPAP. If it was not for the BiPAP she could go to [facility]. 2. Multifocal pneumonia on chest x-ray. White cell count finally normal today. Still hypoxic. Blood cultures without growth. No sputum cultures. Azithromycin and Rocephin day #3. Continue antibiotics for 5 days. Continue secretion clearance with Mucinex. 3. COPD without exacerbation. She is without wheezing. Prolonged NX lesion on exam. She is an old smoker. Not currently a smoker. Treatment is considered of antibiotics. No wheezing and as such no albuterol or DuoNeb required. 4. Chronic atrial fibrillation. Rate controlled. Coumadin resumed today. 5. Aortic stenosis seen on previous echo. Present on exam. Some of her shortness of breath may be from cardiac cachexia from critical aortic stenosis. Hopefully she can get an echocardiogram tomorrow. Once we have some data, I can then answer some of her questions. She wants to know that if she gained some weight, and takes care of herself, would she be a candidate for intervention. Without knowing what the aortic valve area is I cannot answer that right now. I am hoping that our hospitalist tomorrow, who is a crusher dry ground mica, will be better able to evaluate her. 6. Unintentional weight loss. Most likely due to self-neglect. She has put herself on a special diet, and then started getting so short of breath she did not have the energy to cook. She has been eating and drinking what ever we give her. She does not like her food. She prefers Ensure. Nutrition services spent quite a bit of time with her today.I have asked physical therapy to work with her. 7. DO NOT RESUSCITATE status established on April 30.
[2022-05-02] MEDS: SODIUM CHLORIDE FLUSH 0.9% 10 ML SYRINGE IVP SCH ×2 (02:14→09:11)
[2022-05-02 05:06] LABS: CALCIUM, IONIZED 1.09 mmol/L (1.15-1.33); VBG PH 7.413 (7.31-7.41)
[2022-05-02 05:07] LABS: BASOPHILS % (AUTO) 0.3 %; EOSINOPHILS # (AUTO) 0.3 10^3/uL (0.0-0.7); EOSINOPHILS % (AUTO) 2.7 %; HCT - HEMATOCRIT 39.6 % (37.0-47.0); HGB - HEMOGLOBIN 11.8 g/dL (12.0-16.0); LYMPHOCYTES # (AUTO) 0.8 10^3/uL (1.5-3.5); LYMPHOCYTES % (AUTO) 7.4 %; MEAN CORPUSCULAR HEMOGLOBIN 29.9 pg (27.0-31.0); MEAN CORPUSCULAR HGB CONC 29.8 g/dL (32.0-36.0); MEAN CORPUSCULAR VOLUME 100.5 fL (81.0-99.0); MEAN PLATELET VOLUME 9.3 fL (7.9-10.8); MONOCYTES # (AUTO) 0.8 10^3/uL (0.0-1.0); NEUTROPHILS % (AUTO) 81.6 %; PLT - PLATELET COUNT 253 10^3/uL (130-450); RED BLOOD COUNT 3.94 10^6/uL (4.20-5.40)
[2022-05-02 05:49] LABS: CALCIUM 9.2 mg/dL (8.5-10.3); CREATININE 0.5 mg/dL (0.4-1.0); MAGNESIUM 2.1 mg/dL (1.7-2.8); PHOSPHORUS 3.1 mg/dL (2.5-4.6); POTASSIUM 4.4 mmol/L (3.5-5.0)
[2022-05-02] MEDS: PANTOPRAZOLE 40 MG TABLET PO SCH (07:37)
[2022-05-02] MEDS: LEVOTHYROXINE 88 MCG TABLET PO SCH (07:37)
[2022-05-02 08:46] LABS: INR 1.5 (0.8-1.2); PT - PROTHROMBIN TIME 16.1 secs (9.9-12.6)
[2022-05-02] MEDS ORDERED: WARFARIN 2.5 MG TABLET PO SCH (09:00)
[2022-05-02] MEDS: lisinopriL 5 MG TABLET PO SCH (09:09)
[2022-05-02] MEDS: cefTRIAXone 1 GM in SODIUM CHLORIDE 0.9% MINIBAG 100 ML IV SCH (09:10)
[2022-05-02] MEDS: CHOLECALCIFEROL 25 MCG TABLET PO SCH (09:10)
[2022-05-02] MEDS: FUROSEMIDE 20 MG TABLET PO SCH (09:10)
[2022-05-02] MEDS: MULTIVITAMIN W/MINERALS TABLET PO SCH (09:10)
[2022-05-02] MEDS: diltiaZEM CD 120 MG CAPSULE PO SCH (10:30)
[2022-05-02] MEDS: DIGOXIN 125 MCG TABLET PO SCH (13:58)
--- NOTE | 2022-05-02 15:20 | Discharge Plan ---
Discharge Plan Problem Reviewed?: Yes Disposition: 06 Home Health Service Condition: Poor Prescriptions: Multivitamin W/Minerals [Theragran M] 1 tab PO DAILYWM #30 tab Thiamine [Vitamin B-1] 100 mg PO DAILY #30 tablet Diet: Low Sodium (High protein) Activity Restrictions: Activity as Tolerated (No stair climbing) Shower Restrictions: No Driving Restrictions: Yes Assistance Devices: Walker Weight Bearing: Full Weight Instruction Topics: Aortic Stenosis Tx Ch, TAVR Health Concerns: The patient required hospitalization due to shortness of breath, low oxygen levels requiring supplemental oxygen in the ICU, and was found to have cachexia (extreme malnutrition-causing weight loss), emphysema, and fluid overload caused by severe aortic stenosis. The patient is being discharged home today with a new order for home oxygen: The oxygen should be set at 2L/min at rest and during sleep, and at 3L/min min during any activity. Please resume all her pre-hospital medications. There is an order for a daily multivitamin, and daily thiamine vitamin now ordered. These were electronically prescribed to her [facility] pharmacy. An order has been entered for a Home Health agency to come to the house and do Physical Therapy, Occupational Therapy, check her blood pressure and medications and oxygen level and whether she is gaining weight. No climbing stairs please. Decrease alcohol intake to just once a week. Patient needs to see her Primary Care Provider in the next 1-2 weeks for a hospiutal follow-up visit and to get referral to a Traffic Worker for further management of her aortic stenosis and to adjust medications. Plan of Treatment: As above and the patient needs to gain weight. Care Goals: Improvement in symptoms and stabilization are the goals. Assessment: The patient and son understand and are agreeable with the plan. Additional Instructions or Follow Up instructions: If the patient has new or worsening symptoms, call the PCP or the benefits specialist recruiter for advice, or come to the ER. Follow-Up Care: Home Health - RN, Home Health - PT, Home Health - OT No Smoking: If you smoke, Please STOP! Call for help. Follow-up with: Addie Saenz MD [Primary Care Provider] -
--- NOTE | 2022-05-02 15:32 | DISCHARGE SUMMARY ---
Discharge Summary Admit Date: 04/29/22 Discharge Date: 05/02/22 Discharging Provider: Dr Clarissa Knight Primary Care Provider: Dr Addie Saenz Code Status: Attempt Resuscitation Condition at Discharge: Poor Discharge Disposition: [facility] History of Present Illness: 87-year-old elderly female who still lives in her own home. Has a history of aortic stenosis by echocardiogram, and chronic atrial fibrillation for which she is on diltiazem, digoxin, Lasix and lisinopril. Anticoagulation is with Coumadin. Her son did not know that she had aortic stenosis. He states that he really has not seen her, in person, for close to 2 years because of COVID. They have a strained relationship. He lives in [place]. But they do text almost on a daily basis. A few weeks ago he really wanted to reconnect with his mom but she is "a private person". He would call up and say he wanted to see her and she would refuse to let him come in. But he was doing things like coming down to the [place] from [place] and fixing her fence. Or he would take her garbage to the [facility], [place]. She called him last Sunday saying that her chronic shortness of breath was much worse than usual. Her doctor had given her some new pills to try and she was not sure she wanted to take them. But he convinced her to take them. On Sunday she thought she was better but on she called to tell them she was worse and that she probably needed to come to the hospital. He was not able to come see her until Sunday. By then she changed her mind and it took until that afternoon to convince her to come in. She has always been "huffing and puffing" person. She stopped smoking about 35 years ago but smoked ferociously. He also thinks that she is probably been drinking too much. When he went to the [facility] [place] he dropped off bottles of champagne. She lives alone so the bottles could have only come from her. She presented by private vehicle around 4 in the afternoon April 28 reporting that she was short of breath, dizzy, and had a chronic dry cough. It was getting worse and worse since April 23. Denies fever, chills, sore throat. She was eating very little. No phlegm production. No abdominal pain. No urgency or frequency or diarrhea. Her son had an upper respiratory tract infection and was worried that he had given her his infection. She is a former smoker that quit 20 years ago. But no history of COPD. In the emergency room blood pressure was 194/68. Temperature was 36.9. Heart rate was 110. Respirations were 16 and she was 80% on room air. She was very hard of hearing so it made her exam and interview difficult. 3 L nasal cannula increased her O2 sat to 95%. She was alert and oriented. Had a 5/6 systolic murmur. Labored breathing but clear bilaterally. Normal bowel sounds. No pedal edema. BUN 25, creatinine 0.8. Total bili 1.4, AST 47. BNP 772. TSH 12.42. White cell count 12.7. Hemoglobin normal at 14.3. INR was greater than 10. Chest x- ray had a questionable infiltrate versus fluid overload. CTA of the chest was done with angiogram and she did not have pulmonary emboli but did have multifocal opacities and right greater than left pleural effusions. Basal atelectasis. Borderline enlarged heart. Biatrial enlargement. Her PCR viral panel was positive for enterovirus/rhinovirus. There were no beds available on the inpatient side so the patient was kept in the emergency room overnight. This morning the patient was presented to me now that we have beds available and the case was discussed at length with Dr. Alarcon. He is the emergency room provider that is taken over 4. Overnight she was given oxygen, vitamin K, and Lasix. She also received azithromycin and Rocephin. Per nursing the patient was comfortable overnight. However when Dr. Alarcon saw her this morning she was obtunded and poorly responsive. Glucose was 118. pH was 7.20. PCO2 106. PO2 94. Base excess 8.6 positive. She was on nasal cannula 1-1/2 L. The patient does not take any sedating drugs at home. And she did not receive any sedating drugs in the emergency room. Dr. Alarcon put her on BiPAP. She is slowly waking up. This morning's labs showed to have a white cell count of 14.1. An INR of 2.3. BUN 20. Creatinine 0.6. Glucose 118. - HOSPITAL COURSE Hospital Course: 1. Acute respiratory failure with hypoxia and hypercapnia . Attributed to COPD, pneumonia and aortic stenosis. She required BIPAP in the ICU and was eventually weaned down off BIPAP, but needed suppl oxygen via nasal cannula. On the day of discharge she underwent an oximetry walk test: On room air at rest, her oxygen saturation was 86%. On 2 L of O2 at rest, her oxygen saturation was 89%. With ambulation on 2 L O2, her O2 sat was 87%. On 3 L O2 with ambulation, her O2 sat was 90%. I am ordering oxygen for the home, set at 2 L/min at rest and 3 L/min with activity, to treat her COPD and prevent rehospitalization. 2. Pneumonia It was multilobular on chest x-ray. She was put on Azithromycin and Rocephin empirically, plus Mucinex. She finished her antibiotics. White cell count slowly improved. Blood cultures were without growth. No sputum was made to send cultures. 3. Severe Aortic stenosis A loud murmur was present on exam. Her Echocardiogram showed severe (possibly even critical) aortic stenosis. She needs Cardiology management, and consideration for TAVR, if her COPD and cachexia don't prohibit it. 5. COPD without exacerbation. She is an ex-smoker, not currently a smoker. She had no wheezing but poor air movement and a prolonged expiratory phase. We had her on prn bronchodilators. 6. Cor pulmonale This was seen on Echo, likely caused by her longstanding COPD plus the aortic stenosis. 7. Atrial fibrillation with RVR Coumadin was resumed when INR was less than 10. Her meds were adjusted for rate control. Her HR dropped to 38 at night, thus we stopped her Dig and discharged her OFF Dig, but continued the Cardizem. 4. Unintentional weight loss She put herself on a "blood type diet" several years ago, lost 100 lbs and had no medical follow-up due to Covid and kept loosing weight. 8 Severe protein calorie malnutrition. She put herself on a "blood type diet" several years ago, and then started getting so short of breath she did not have the energy to cook. Self-neglect vs cardiac cachexia could also be adding to this. She was put on a MOV at discharge. 8. Generalized weakness This was likely due to chronic shortness of breath causing deconditioning, also possibly from cardiac cachexia, and likely from her protein calorie malnutrition. In addition, at admission it was noted that she had many empty bottles of alcohol, therefore possibly poor nutrition was accompanying alcohol abuse. She was advised to limit her alcohol intake to 1 drink per week. She was put on daily Thiamine at discharge. She was discharged with a referral for Home Health PT and OT and RN plus Bath Aide. Also, the son moved in to help her. - ALLERGIES Allergies/Adverse Reactions: Allergies Allergy/AdvReac Type Severity Reaction Status Date / Time codeine Allergy Hallucinati Verified 04/28/22 16:36 ons - MEDICATIONS Home Medications: Ambulatory Orders Medication Instructions Recorded Confirmed Cholecalciferol [Vitamin D3] 25 mcg PO DAILY 04/28/22 04/28/22 Furosemide [Lasix] 20 mg PO DAILY 04/28/22 04/28/22 Warfarin [Coumadin] 5 mg PO MOWEFR 04/28/22 04/29/22 dilTIAZem HCL [Diltiazem 24Hr ER 120 mg PO DAILY 04/28/22 04/29/22 (Xr)] lisinopriL [Zestril] 5 mg PO DAILY 04/28/22 04/29/22 Levothyroxine [Synthroid] 100 mcg PO QDAC 04/29/22 04/29/22 Warfarin [Coumadin] 2.5 mg PO SUTUTHSA 04/29/22 04/29/22 Multivitamin W/Minerals [Theragran 1 tab PO DAILYWM #30 tab 05/02/22 M] Thiamine [Vitamin B-1] 100 mg PO DAILY #30 tablet 05/02/22 - PHYSICAL EXAM AT DISCHARGE General Appearance: positive: No acute distress, Alert, Other (Cachectic with temporal wasting. Wearing O2 via nasal cannula.) Eyes Bilateral: positive: Normal inspection, EOMI ENT: positive: ENT inspection nml, No signs of dehydration, Other (Speaks in a whispered voice.) Neck: positive: Nml inspection, No JVD (in vertical position.) Respiratory: positive: No respiratory distress (while on suppl O2 via n.c.), Other (Clear lungs but poor air movement and prolonged expiratory phase.) Cardiovascular: positive: Irregularly irregular, Systolic murmur (4/6 honking systolic murmur heard throughout the precordium and even near her left scapula) Abdomen: positive: Non-tender, Nml bowel sounds, No distention Skin: positive: Warm, Dry, Pallor Extremities: positive: Non-tender, No pedal edema Neurologic/Psychiatric: positive: Oriented x3, Motor nml, Other (CHITINA) - LABS Result Diagrams: 05/02/22 04:16 05/02/22 04:16 - DIAGNOSTIC IMAGING Diagnostic Imaging Results: Final report reviewed - FOLLOW UP Follow Up: See PCP in the next 1 to 2 weeks for hospital follow-up visit. Referral to Cardiology is needed. - TIME SPENT Time Spent in Discharge (Minutes): 50
[2022-05-02 16:13] VITALS: BP 176/77
== END 2022-05-02 16:35 | disposition home health service (06) | DRG 193 ==
LOC: ED 16:13 → ICU 04-29 11:20
PROVIDERS: ADMIT Specialist; ATTEND Internal Medicine
DX: J18.9 Pneumonia, unspecified organism (principal); R09.02 Hypoxemia; E43 Unspecified severe protein-calorie malnutrition; R79.1 Abnormal coagulation profile; B34.8 Other viral infections of unspecified site; Z20.822 Contact with and (suspected) exposure to COVID-19; I48.91 Unspecified atrial fibrillation; J96.02 Acute respiratory failure with hypercapnia; J96.01 Acute respiratory failure with hypoxia; J90 Pleural effusion, not elsewhere classified; I48.20 Chronic atrial fibrillation, unspecified; J43.9 Emphysema, unspecified; Z87.891 Personal history of nicotine dependence; I27.81 Cor pulmonale (chronic); Z79.01 Long term (current) use of anticoagulants; E03.9 Hypothyroidism, unspecified; I51.7 Cardiomegaly; Z68.20 Body mass index [BMI] 20.0-20.9, adult; R63.4 Abnormal weight loss; R53.1 Weakness; H91.90 Unspecified hearing loss, unspecified ear; I06.0 Rheumatic aortic stenosis; Z66 Do not resuscitate
CPT/HCPCS: 36415; 36600; 70450; 71045; 71275; 80048; 80053; 80162; 82330; 82803; 83690; 83735; 83880; 84100; 84439; 84443; 85025; 85610; 87040; 87150; 87633; 93005; 93306; 94660; 96365; 96366; 96367; 96375; 96376; 97116; 97161; 97165; 97530; 97535; 99285; A9270; Q9967

== ENCOUNTER 2022-05-06 13:03 | Outpatient (CLI) | payer MEDICARE, OTHER | END 2022-05-06 13:04 | disposition EMS.NT | LOC: EMS 13:03 | DX: Z76.89 Persons encountering health services in other specified circumstances (principal) ==

== ENCOUNTER 2022-05-08 23:58 | Outpatient (CLI) | payer MEDICARE, OTHER | END 2022-05-08 23:59 | disposition EMS.NT | LOC: EMS 23:58 | DX: Z72.820 Sleep deprivation (principal) ==

== ENCOUNTER 2022-05-11 11:09 | Outpatient (CLI) | payer MEDICARE, OTHER | END 2022-05-11 23:59 | disposition critical access hospital (66) | LOC: EMS 11:09 | DX: R41.0 Disorientation, unspecified (principal); R46.89 Other symptoms and signs involving appearance and behavior | CPT/HCPCS: A0425; A0429 ==

== ENCOUNTER 2022-05-11 11:42 | Inpatient (IN) | payer MEDICARE, OTHER ==
--- NOTE | 2022-05-11 12:09 | ED Physician Documentation ---
PD HPI DYSPNEA - Stated complaint Stated Complaint: ALOC - Chief complaint Chief Complaint: Resp - History obtained from History obtained from: Patient, EMS - Additional information Additional information: 87-year-old woman with history of aortic stenosis, chronic atrial fibrillation on anticoagulation who lives alone. She presents by ambulance. Reportedly the family has found her to be more confused via text message over the last couple of weeks and became worried about her. She is very hard of hearing so history is by writing with her. Prehospital she is noted to be hypoxemic into the mid 80s. Her only complaint is she is feels like she is choking or drowning. She also complains of left great toe pain as she dropped something on it recently. 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: Other () : Incontinence, Frequency HEENT: Chronic vision loss, Chronic hearing loss (hearing aids), Other Psych: None Musculoskeletal: Rheumatoid arthritis Derm: None - Past Surgical History Past Surgical History: Yes /ASSOCIATE PROFESSOR OF MANAGEMENT: section, Tubal ligation Cardiovascular: Other HEENT: Cataracts - Present Medications Home Medications: Ambulatory Orders Medication Instructions Recorded Confirmed Cholecalciferol [Vitamin D3] 25 mcg PO DAILY 04/28/22 05/11/22 Furosemide [Lasix] 20 mg PO DAILY 04/28/22 05/11/22 Warfarin [Coumadin] 5 mg PO MOWEFR 04/28/22 05/11/22 dilTIAZem HCL [Diltiazem 24Hr ER 120 mg PO DAILY 04/28/22 05/11/22 (Xr)] lisinopriL [Zestril] 5 mg PO DAILY 04/28/22 05/11/22 Levothyroxine [Synthroid] 100 mcg PO QDAC 04/29/22 05/11/22 Warfarin [Coumadin] 2.5 mg PO SUTUTHSA 04/29/22 05/11/22 Multivitamin W/Minerals [Theragran 1 tab PO DAILYWM #30 tab 05/02/22 05/11/22 M] Thiamine [Vitamin B-1] 100 mg PO DAILY #30 tablet 05/02/22 05/11/22 - Allergies Allergies/Adverse Reactions: Allergies Allergy/AdvReac Type Severity Reaction Status Date / Time codeine Allergy Hallucinati Verified 04/28/22 16:36 ons - Social History Does the pt smoke?: No Smoking Status: Former smoker Does the pt drink ETOH?: Yes Does the pt have substance abuse?: No - Immunizations Immunizations are current?: Yes - POLST Patient has POLST: No PD ED PE NORMAL - Vitals Vital signs reviewed: Yes (Hypoxemic and tachypneic) - General General: Other (Communication is via writing since she is incredibly hard of hearing. She remembers recent events although is unclear on the date. She remembers recently being hospitalized, she was just a few weeks ago.) - HEENT HEENT: PERRL, EOMI - Neck Neck: Supple, no meningeal sign, No bony TTP - Cardiac Cardiac: Other (Irregularly irregular with 5 out of 6 decrescendo holosystolic murmur heard best at the upper sternal borders) - Respiratory Respiratory: Other (Hypoxemic and tachypneic, crackles at the right base and diminished at the right base) - Abdomen Abdomen: Non tender - Back Back: No CVA TTP, No spinal TTP - Derm Derm: Normal color, Warm and dry - Extremities Extremities: Other (Left great toe is bruised and tender) - Neuro Neuro: Other (Very hard of hearing, alert and oriented x2) Eye Opening: Spontaneous Motor: Obeys Commands Verbal: Oriented GCS Score: 15 - Psych Psych: Normal mood, Normal affect Results - Vitals Vitals: Vital Signs - 24 hr 05/11/22 05/11/22 05/11/22 11:42 12:15 12:16 Temperature 36.5 C Heart Rate 78 81 79 Respiratory 37 H 24 24 Rate Blood Pressure 179/73 H 179/73 H 179/73 H O2 Saturation 86 L 94 93 If not protocol 3 : Oxygen Flow, liters/minute 05/11/22 05/11/22 12:36 13:09 Temperature Heart Rate 69 75 Respiratory 16 Rate Blood Pressure 177/80 H 178/97 H O2 Saturation If not protocol : Oxygen Flow, liters/minute Oxygen O2 Source Nasal cannula Oxygen Flow Rate 3 - EKG (time done) 1211 Rate: Rate (enter#) (76) Rhythm: NSR (w pac) Intervals: Prolonged VT QRS: LVH Ischemia: Q waves (anterior). No: ST elevation c/w ischemia - Labs Labs: Laboratory Tests 05/11/22 05/11/22 05/11/22 12:14 12:35 12:35 WBC 9.0 RBC 3.86 L Hgb 11.6 L Hct 39.4 MCV 102.1 H MCH 30.1 MCHC 29.4 L RDW 13.8 Plt Count 217 MPV 10.2 Neut # (Auto) 7.1 H Lymph # (Auto) 0.9 L [place] # (Auto) 0.8 Eos # (Auto) 0.1 Baso # (Auto) 0.1 Absolute Nucleated RBC 0.00 Nucleated RBC % 0.0 PT INR VBG pH VBG pCO2 VBG pO2 VBG HCO3 VBG Total CO2 VBG O2 Saturation VBG Base Excess Sodium 145 Potassium 4.1 Chloride 89 L Carbon Dioxide 44 H* Anion Gap 12.0 BUN 40 H Creatinine 0.6 Estimated GFR (MDRD) 95 Glucose 114 H Lactic Acid Calcium 9.5 Magnesium 2.7 Total Bilirubin 1.1 H AST 40 ALT 33 Alkaline Phosphatase 59 B-Natriuretic Peptide Total Protein 8.1 Albumin 3.8 Globulin 4.3 H Albumin/Globulin Ratio 0.9 L Nasal Adenovirus (PCR) NOT DETECTED Nasal B. parapertussis DNA (PCR) NOT DETECTED Nasal Coronavir 229E PCR NOT DETECTED Nasal Coronavir HKU1 PCR NOT DETECTED Nasal Coronavir NL63 PCR NOT DETECTED Nasal Coronavir OC43 PCR NOT DETECTED Nasal Enterovir/Rhinovir PCR NOT DETECTED Nasal Influenza B PCR NOT DETECTED Nasal Influenza A PCR NOT DETECTED Nasal Parainfluen 1 PCR NOT DETECTED Nasal Parainfluen 2 PCR NOT DETECTED Nasal Parainfluen 3 PCR NOT DETECTED Nasal Parainfluen 4 PCR NOT DETECTED Nasal RSV (PCR) NOT DETECTED Nasal B.pertussis DNA PCR NOT DETECTED Nasal C.pneumoniae (PCR) NOT DETECTED [place] Human Metapneumo PCR NOT DETECTED Nasal M.pneumoniae (PCR) NOT DETECTED Nasal SARS-CoV-2 (PCR) NOT DETECTED Last Dose Date Last Dose Time Digoxin 05/11/22 05/11/22 05/11/22 12:35 12:35 12:35 WBC RBC Hgb Hct MCV MCH MCHC RDW Plt Count MPV Neut # (Auto) Lymph # (Auto) [place] # (Auto) Eos # (Auto) Baso # (Auto) Absolute Nucleated RBC Nucleated RBC % PT 14.0 H INR 1.3 H VBG pH 7.450 H VBG pCO2 77.1 H VBG pO2 21.4 L VBG HCO3 52.4 H VBG Total CO2 54.8 H VBG O2 Saturation 43.8 L VBG Base Excess 23.8 H Sodium Potassium Chloride Carbon Dioxide Anion Gap BUN Creatinine Estimated GFR (MDRD) Glucose Lactic Acid 0.9 Calcium Magnesium Total Bilirubin AST ALT Alkaline Phosphatase B-Natriuretic Peptide Total Protein Albumin Globulin Albumin/Globulin Ratio Nasal Adenovirus (PCR) Nasal B. parapertussis DNA (PCR) Nasal Coronavir 229E PCR Nasal Coronavir HKU1 PCR Nasal Coronavir NL63 PCR Nasal Coronavir OC43 PCR Nasal Enterovir/Rhinovir PCR Nasal Influenza B PCR Nasal Influenza A PCR Nasal Parainfluen 1 PCR Nasal Parainfluen 2 PCR Nasal Parainfluen 3 PCR Nasal Parainfluen 4 PCR Nasal RSV (PCR) Nasal B.pertussis DNA PCR Nasal C.pneumoniae (PCR) [place] Human Metapneumo PCR Nasal M.pneumoniae (PCR) Nasal SARS-CoV-2 (PCR) Last Dose Date Last Dose Time Digoxin 05/11/22 05/11/22 12:35 12:35 WBC RBC Hgb Hct MCV MCH MCHC RDW Plt Count MPV Neut # (Auto) Lymph # (Auto) [place] # (Auto) Eos # (Auto) Baso # (Auto) Absolute Nucleated RBC Nucleated RBC % PT INR VBG pH VBG pCO2 VBG pO2 VBG HCO3 VBG Total CO2 VBG O2 Saturation VBG Base Excess Sodium Potassium Chloride Carbon Dioxide Anion Gap BUN Creatinine Estimated GFR (MDRD) Glucose Lactic Acid Calcium Magnesium Total Bilirubin AST ALT Alkaline Phosphatase B-Natriuretic Peptide 582 H Total Protein Albumin Globulin Albumin/Globulin Ratio Nasal Adenovirus (PCR) Nasal B. parapertussis DNA (PCR) Nasal Coronavir 229E PCR Nasal Coronavir HKU1 PCR Nasal Coronavir NL63 PCR Nasal Coronavir OC43 PCR Nasal Enterovir/Rhinovir PCR Nasal Influenza B PCR Nasal Influenza A PCR Nasal Parainfluen 1 PCR Nasal Parainfluen 2 PCR Nasal Parainfluen 3 PCR Nasal Parainfluen 4 PCR Nasal RSV (PCR) Nasal B.pertussis DNA PCR Nasal C.pneumoniae (PCR) [place] Human Metapneumo PCR Nasal M.pneumoniae (PCR) Nasal SARS-CoV-2 (PCR) Last Dose Date UNK Last Dose Time UNK Digoxin 0.2 - Rads (name of study) Single view chest x-ray demonstrates bilateral pneumonia versus edema with right greater than left pleural effusions Radiology: Final report received, EMP read indepedently 3 views of the left great toe are without fracture Radiology: Final report received, EMP read indepedently CT of the head without contrast shows sinus and mastoid disease, otherwise negative. Radiology: Final report received, EMP read indepedently PD Medical Decision Making - ED course ED course: Patient was unable to swallow liquids here without choking. Independent history taken from son. Her older son had been taking care of her at home but they had some sort of disagreement this morning. The younger son went over this morning and found her down, syncopal but did not require CPR. CBC reviewed with mild macrocytic anemia and left shift with normal white count totally. INR reviewed and only slightly elevated. Venous blood gas notable for probably chronic CO2 retention given fairly normal pH with very high CO2, corroborated with CMP showing very high carbon dioxide. BNP modestly elevated and lower than the last few values on the chart. Although the BNP is elevated I do not think she is in congestive heart failure actively. Patient will need admission and spoke with Dr. Zainab Chinchilla for admission at 1:20 PM. Departure - Departure Disposition: [facility] DC/Xfer Clinical Impression: Encephalopathy Pneumonia Qualifiers: Pneumonia type: due to unspecified organism Laterality: bilateral Lung location: lower lobe of lung Qualified Code(s): J18.9 - Pneumonia, unspecified organism Chronic respiratory failure Qualifiers: Respiratory failure complication: hypoxia and hypercapnia Qualified Code(s): J96.11 - Chronic respiratory failure with hypoxia; J96.12 - Chronic respiratory failure with hypercapnia; J96.12 - Chronic respiratory failure with hypercapnia Aortic stenosis Qualifiers: Cardiac valve disease etiology: rheumatic Qualified Code(s): 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
[2022-05-11 12:45] LABS: BASOPHILS # (AUTO) 0.1 10^3/uL (0.0-0.1); BASOPHILS % (AUTO) 0.7 %; EOSINOPHILS # (AUTO) 0.1 10^3/uL (0.0-0.7); EOSINOPHILS % (AUTO) 1.5 %; HCT - HEMATOCRIT 39.4 % (37.0-47.0); HGB - HEMOGLOBIN 11.6 g/dL (12.0-16.0); LYMPHOCYTES # (AUTO) 0.9 10^3/uL (1.5-3.5); LYMPHOCYTES % (AUTO) 9.7 %; MEAN CORPUSCULAR HEMOGLOBIN 30.1 pg (27.0-31.0); MEAN CORPUSCULAR HGB CONC 29.4 g/dL (32.0-36.0); MEAN CORPUSCULAR VOLUME 102.1 fL (81.0-99.0); MEAN PLATELET VOLUME 10.2 fL (7.9-10.8); MONOCYTES # (AUTO) 0.8 10^3/uL (0.0-1.0); NEUTROPHILS # (AUTO) 7.1 10^3/uL (1.5-6.6); NEUTROPHILS % (AUTO) 78.5 %; PLT - PLATELET COUNT 217 10^3/uL (130-450); RED BLOOD COUNT 3.86 10^6/uL (4.20-5.40); RED CELL DISTRIBUTION WIDTH 13.8 % (12.0-15.0)
--- NOTE | 2022-05-11 12:47 | XRAY Report ---
PROCEDURE: Chest 1 View X-Ray INDICATIONS: hypoxemia TECHNIQUE: One view of the chest was acquired. COMPARISON: 04/28/2022 chest x-ray FINDINGS: Surgical changes and devices: None. Lungs and pleura: No pneumothorax. Increased, moderate right and small left pleural effusions. Moder ate basilar predominant reticulonodular pulmonary opacity. Mediastinum: Mediastinal contours appear normal. Heart size is normal. Bones and chest wall: No suspicious bony lesions. Overlying soft tissues appear unremarkable. IMPRESSION: 1. Bilateral pneumonia versus edema. 2. Right greater than left pleural effusions. Reviewed by: Vianca Oneill MD on 05/11/2022 12:45 PM [facility] [[email or web address]] Approved by: Vianca Oneill MD on 05/11/2022 12:45 PM [facility] [[email or web address]] Station ID: [id number]
--- NOTE | 2022-05-11 12:48 | XRAY Report ---
PROCEDURE: Toe(s) LT INDICATIONS: great toe inj TECHNIQUE: 3 views of the first toe(s) acquired. COMPARISON: None FINDINGS: Bones: No fractures or dislocations. No suspicious bony lesions. Soft tissues: No suspicious soft tissue densities. IMPRESSION: No acute fracture. No osseous lesion. If symptoms and/or clinical suspicion for pathology continue, f urther assessment with repeat plain films, or advanced imaging (e.g., CT, MRI, or bone scan) is recom mended for further assessment. Reviewed by: Vianca Oneill MD on 05/11/2022 12:47 PM [facility] Approved by: Vianca Oneill MD on 05/11/2022 12:47 PM PST Station ID: [id number]
[2022-05-11 12:55] LABS: VBG BASE EXCESS 23.8 mmol/L (-2 - +2); VBG HCO3 52.4 mmol/L (23-28); VBG OXYGEN SATURATION 43.8 % (60-80); VBG PCO2 77.1 mmHg (41-51); VBG PH 7.45 (7.31-7.41); VBG PO2 21.4 mmHg (25-47); VBG TOTAL CO2 54.8 mmol/L (24-29)
[2022-05-11 12:56] LABS: INR 1.3 (0.8-1.2)
[2022-05-11 13:02] LABS: ALBUMIN 3.8 g/dL (3.2-5.5); ALBUMIN/GLOBULIN RATIO 0.9 (1.0-2.2); BILIRUBIN,TOTAL 1.1 mg/dL (0.2-1.0); CALCIUM 9.5 mg/dL (8.5-10.3); CREATININE 0.6 mg/dL (0.4-1.0); MAGNESIUM 2.7 mg/dL (1.7-2.8); POTASSIUM 4.1 mmol/L (3.5-5.0); TOTAL PROTEIN 8.1 g/dL (6.7-8.2)
[2022-05-11] MEDS ORDERED: cefTRIAXone 1 GM in SODIUM CHLORIDE 0.9% MINIBAG 100 ML IV STA (13:02)
[2022-05-11] MEDS ORDERED: AZITHROMYCIN INJ 500 MG in SODIUM CHLORIDE 0.9% 250 ML IV STA (13:02)
[2022-05-11 13:22] LABS: DIGOXIN 0.2 ng/mL
[2022-05-11 13:23] LABS: B. PARAPERTUSSIS- RESP PCR PAN NOT DETECTED; B. PERTUSSIS- RESP PCR PANEL NOT DETECTED; C. PNEUMONIAE- RESP PCR PANEL NOT DETECTED; CORONAVIRUS 229E-RESP PCR NOT DETECTED; CORONAVIRUS HKU1-RESP PCR NOT DETECTED; CORONAVIRUS NL63-RESP PCR NOT DETECTED; CORONAVIRUS OC43-RESP PCR NOT DETECTED; HUMAN METAPNEUMOVIRUS NOT DETECTED; INFLUENZA A- RESP PCR PANEL NOT DETECTED; INFLUENZA B - RESP PCR PANEL NOT DETECTED; M. PNEUMONIAE- RESP PCR PANEL NOT DETECTED; PARAINFLUENZA VIRUS 1 NOT DETECTED; PARAINFLUENZA VIRUS 2 NOT DETECTED; PARAINFLUENZA VIRUS 3 NOT DETECTED; PARAINFLUENZA VIRUS 4 NOT DETECTED; RHINOVIRUS/ENTEROVIRUS NOT DETECTED; RSV- RESP PCR PANEL NOT DETECTED; SARS-CoV-2 -RESP PCR PANEL NOT DETECTED
[2022-05-11] MEDS ORDERED: SODIUM CHLORIDE FLUSH 0.9% 10 ML SYRINGE IVP PRN (13:23)
[2022-05-11] MEDS ORDERED: ONDANSETRON ODT 4 MG TABLET TL PRN (13:32)
[2022-05-11] MEDS ORDERED: ONDANSETRON 4 MG/2 ML VIAL IVP PRN (13:32)
[2022-05-11] MEDS ORDERED: oxyCODONE 5 MG TABLET PO PRN (13:32)
[2022-05-11] MEDS ORDERED: ACETAMINOPHEN 325 MG TABLET PO PRN (13:32)
--- NOTE | 2022-05-11 13:42 | HISTORY & PHYSICAL EXAMINATION ---
Chief Complaint - Chief Complaint Chief Complaint: Pneumonia History of Present Illness - Admitted From Admitted From:: [facility] - History Obtained From Records Reviewed: This admission History obtained from: Chart review/patient interview/ ER physician Exam Limitations: Patient is extremly hard of hearing and could not provide ROS - History of Present Illness HPI Comment/Other: Patient is a 87 year old female who presents to the emergency room with pneumonia that resulted in hypoxia. Patient was brought by her son. Patient was placed on oxygen by ER physician and oxygen levels were improved during examination. Patient unable to provide reliable history of events and history was given to ER physician by patients son. ROS was unable to be obtained due to patients hearing difficulty. On admission, patient to be placed on empiric antibiotics due to believed acqu isition of community acquired pneumonia. Patient is hypoxic on nasal cannula and was placed on non-rebreather mask by RT at approximately 1730. Patient is responsive to treatment, however, is unable to provide history due to difficulty hearing. Patients son will be ask to provide hearing aid to allow for more detail history when he returns to the hospital. Patient home medications for atrial fibrillation will be continued to ensure adequate anticoagulation. Looking at patients history, patient was discharged from hospital May 01 due to pneumonia, weight loss and cardiac cachexia. Patient was sent home in the hopes that patient would follow care plan and follow up with cardiology to ad dress aortic stenosis and cardiac cachexia. There seems to be difficuty in getting necessary appointments and this ultimately has lead to rehospitalization of patient. History - Past Medical History Cardiovascular: reports: Atrial fibrillation, Valve disorder Respiratory: reports: Pneumonia, Shortness of breath Neuro: reports: None Endocrine/Autoimmune: reports: HyPOthyroidism GI: reports: None BUTTON SEWER HAND: reports: Other () : reports: Incontinence, Frequency HEENT: reports: Chronic vision loss, Chronic hearing loss (hearing aids), Other Psych: reports: None Musculoskeletal: reports: Rheumatoid arthritis Derm: reports: None MRSA Hx?: No - Past Surgical History /BUTTON SEWER HAND: reports: section, Tubal ligation Cardiovascular: reports: Other HEENT: reports: Cataracts - Family & Social History Family History Comment/Other: Dad of heart in his 50s. Had a massive heart attack. Mom of heart failure in her 80s. No siblings. 2 sons. They have high blood pressure and that is about it. Living Situation: Alone Social History Notes: Smoked tremendously until 35 years ago. But son cannot tell me how much. Patient is too deaf to hear my question. She denies alcohol use but son says that he threw awake quite a few champagne bottles this last month. No history of recreational subs abuse. for many years now. - POLST Patient has POLST: No Meds/Allgy - Home Medications Home Medications: Ambulatory Orders Medication Instructions Recorded Confirmed Cholecalciferol [Vitamin D3] 25 mcg PO DAILY 04/28/22 05/11/22 Furosemide [Lasix] 20 mg PO DAILY 04/28/22 05/11/22 Warfarin [Coumadin] 5 mg PO MOWEFR 04/28/22 05/11/22 dilTIAZem HCL [Diltiazem 24Hr ER 120 mg PO DAILY 04/28/22 05/11/22 (Xr)] lisinopriL [Zestril] 5 mg PO DAILY 04/28/22 05/11/22 Warfarin [Coumadin] 2.5 mg PO SUTUTHSA 04/29/22 05/11/22 Multivitamin W/Minerals [Theragran 1 tab PO DAILYWM #30 tab 05/02/22 05/11/22 M] Thiamine [Vitamin B-1] 100 mg PO DAILY #30 tablet 05/02/22 05/11/22 Digoxin [Lanoxin] 125 mcg PO DAILY 05/11/22 05/11/22 Levothyroxine [Synthroid] 112 mcg PO QDAC 05/11/22 05/11/22 - Allergies Allergies/Adverse Reactions: Allergies Allergy/AdvReac Type Severity Reaction Status Date / Time codeine Allergy Hallucinati Verified 04/28/22 16:36 ons Review of Systems - Ears, Nose & Throat Ears, Nose & Throat: reports: Hearing loss (Unable to obtain adequate ROS due to hearing loss. Patients son will be asked to bring hearing aids when he arrives to the hospital.) Exam - Vital Signs Reviewed Vital Signs: Yes Vital Signs: Vital Signs x48h Temp Pulse Resp BP Pulse Ox O2 Flow Rate 05/11/22 13:09 75 178/97 H 05/11/22 12:36 69 16 177/80 H 05/11/22 12:16 79 24 179/73 H 93 05/11/22 12:15 81 24 179/73 H 94 3 05/11/22 11:42 36.5 C 78 37 H 179/73 H 86 L - Physical Exam General Appearance: positive: Alert, Mild distress (Patient vitals were stable, however patient showed mild distress.) Eyes Bilateral: positive: Normal inspection, No lid inflammation ENT: positive: ENT inspection nml Neck: positive: Nml inspection, No JVD Respiratory: positive: Other (Tachypneic, however oxygen level at 95% on non- rebreather.) Cardiovascular: positive: Other (crescendo-decresendo systolic murmur that radiates to neck.) Skin: positive: Color nml, Warm Neurologic/Psychiatric: positive: Other (Patient was able to been woken up and patient was oreinted to time and place. Patient seemed very tired.) Conclusion/Plan - Problem List (1) Pneumonia Conclusion/Plan: Patient showed signs of mild respiratory distress and is tachypneic. Patient was able to be woken up, however, history and ROS could not be obtained due to patient being hard of hearing. Plan: Start patient on empiric antibiotics Azithromycin and ceftriaxone Continue patient on 4L oxygen via non-rebreather Continue to monitor patients vital every 8 hours Qualifiers: Pneumonia type: due to unspecified organism Laterality: bilateral Lung location: lower lobe of lung Qualified Code(s): J18.9 - Pneumonia, unspecified organism (2) Hypoxia Conclusion/Plan: Patient shows signs of mild respiratory distress with tachypnea. Patient is alert and oriented. Plan: Start patient on 5L non-rebreather Continue to monitor patients vital signs every 8 hours (3) Atrial fibrillation Conclusion/Plan: Patient is not showing signs and symptoms of exacerbation of atrial fibrillation. Plan Continue patient on home dose warfarin regimen. Continue to monitor patients vitals every 8 hours Qualifiers: Atrial fibrillation type: paroxysmal Qualified Code(s): I48.0 - Paroxysmal atrial fibrillation (4) Aortic stenosis Conclusion/Plan: Patient aortic stenosis can be heard on PE. However no signs of exacerbation was noted on exam. 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 Patient is alert and oriented Plan Continue patient home dose of levothyroxine Monitor patients vitals every 8 hours Qualifiers: Hypothyroidism type: acquired Qualified Code(s): E03.9 - Hypothyroidism, unspecified - Lab Results Fish Bones: 05/11/22 12:35 05/11/22 12:35 Core Measures - DVT/VTE - Prophylaxis VTE/DVT Device ordered at admit?: Yes
--- NOTE | 2022-05-11 13:57 | CT Report ---
PROCEDURE: HEAD WO INDICATIONS: ams, dysphagia TECHNIQUE: Noncontrast 4.5 mm thick angled axial sections acquired from the foramen magnum to the vertex. For r adiation dose reduction, the following was used: automated exposure control, adjustment of mA and/or kV according to patient size. COMPARISON: None. FINDINGS: Image quality: Degraded by motion artifact. CSF spaces: Basal cisterns are patent. No extra-axial fluid collections. Ventricles are normal in size and shape. Brain: No midline shift. No intracranial masses or hemorrhage. Vargas-white matter interface is norm al. Skull and face: Calvarium and visualized facial bones are intact, without suspicious lesions. Sinuses: Air-fluid level within the left maxillary sinus. Right maxillary sinus retention cyst. Moder ate bilateral mastoid fluid. IMPRESSION: 1. Limited examination demonstrating no acute intracranial abnormality. 2. Sinus and mastoid disease. Reviewed by: Vianca Oneill MD on 05/11/2022 1:55 PM PST Approved by: Vianca Oneill MD on 05/11/2022 1:55 PM PST Station ID: [id number]
[2022-05-11] MEDS ORDERED: IPRATROPIUM/ALBUTEROL 3 ML NEB INH STA (14:54)
[2022-05-11 15:06] LABS: BILIRUBIN,URINE NEGATIVE (NEGATIVE); GLUCOSE, URINE (UA) NEGATIVE (NEGATIVE); KETONES,URINE (UA) NEGATIVE (NEGATIVE); LEUKOCYTE ESTERASE, URINE NEGATIVE (NEGATIVE); NITRITE,URINE NEGATIVE (NEGATIVE); OCCULT BLOOD,URINE NEGATIVE (NEGATIVE); PH,URINE 8.5 PH (5.0-7.5); PROTEIN,URINE NEGATIVE (NEGATIVE); UROBILINOGEN,URINE 0.2 (NORMAL) E.U./dL (NORMAL)
[2022-05-11 15:07] LABS: CLARITY,URINE SL. CLOUDY (CLEAR)
[2022-05-11 15:11] LABS: BACTERIA,URINE Rare /HPF (None Seen); RBC,URINE None Seen /HPF (0-5); SQUAMOUS EPITHELIAL CELL,UR FEW Squamous (<= Few); WBC,URINE 0-3 /HPF (0-5)
[2022-05-11 15:12] LABS: AMORPHOUS SEDIMENT,UR Marked /LPF
[2022-05-11] MEDS: SODIUM CHLORIDE 0.9% 1,000 ML IV SCH (17:11)
[2022-05-11] MEDS: SODIUM CHLORIDE FLUSH 0.9% 10 ML SYRINGE IVP SCH (17:19)
[2022-05-11 17:21] LABS: ABG PH 7.47 (7.35-7.45)
[2022-05-11 17:22] LABS: ABG BASE EXCESS 20.5 mmol/L (-2.0-3.0); ABG HCO3 47.7 mmol/L (22.0-26.0); ALLEN TEST POSITIVE
[2022-05-11 17:24] LABS: ABG PCO2 66 mmHg (34-45); ABG PO2 44 mmHg (80-100)
[2022-05-11 17:25] LABS: ABG OXYGEN SATURATION 83 % (94-98); ABG TCO2 49.7 MMOL/L (21.0-29.0)
[2022-05-11] MEDS: lisinopriL 5 MG TABLET PO SCH (17:40)
[2022-05-11] MEDS ORDERED: ZINC OXIDE 20% OINT 30 GM TUBE TOP PRN (18:10)
[2022-05-12] MEDS: SODIUM CHLORIDE FLUSH 0.9% 10 ML SYRINGE IVP SCH ×3 (01:00→16:32)
[2022-05-12] MEDS: SODIUM CHLORIDE 0.9% 1,000 ML IV SCH ×3 (04:40→18:19)
[2022-05-12 05:24] LABS: BASOPHILS # (AUTO) 0.1 10^3/uL (0.0-0.1); BASOPHILS % (AUTO) 0.8 %; EOSINOPHILS # (AUTO) 0.1 10^3/uL (0.0-0.7); HCT - HEMATOCRIT 33.7 % (37.0-47.0); HGB - HEMOGLOBIN 9.9 g/dL (12.0-16.0); LYMPHOCYTES # (AUTO) 0.9 10^3/uL (1.5-3.5); LYMPHOCYTES % (AUTO) 13.7 %; MEAN CORPUSCULAR HEMOGLOBIN 30.2 pg (27.0-31.0); MEAN CORPUSCULAR HGB CONC 29.4 g/dL (32.0-36.0); MEAN CORPUSCULAR VOLUME 102.7 fL (81.0-99.0); MEAN PLATELET VOLUME 10.5 fL (7.9-10.8); MONOCYTES # (AUTO) 0.6 10^3/uL (0.0-1.0); MONOCYTES % (AUTO) 9.6 %; NEUTROPHILS # (AUTO) 4.6 10^3/uL (1.5-6.6); NEUTROPHILS % (AUTO) 73.1 %; PLT - PLATELET COUNT 162 10^3/uL (130-450); RED BLOOD COUNT 3.28 10^6/uL (4.20-5.40); RED CELL DISTRIBUTION WIDTH 14.3 % (12.0-15.0); WHITE BLOOD COUNT 6.4 x10^3/uL (4.8-10.8)
[2022-05-12 05:35] LABS: CALCIUM 8.5 mg/dL (8.5-10.3); CREATININE 0.6 mg/dL (0.4-1.0)
[2022-05-12] MEDS: LEVOTHYROXINE 112 MCG TABLET PO SCH (06:46)
[2022-05-12] MEDS ORDERED: iohexoL-300 100 ML VIAL ONE (07:18)
[2022-05-12] MEDS ORDERED: iohexoL-300 100 ML VIAL IVP ONE (09:11)
[2022-05-12] MEDS: diltiaZEM CD 120 MG CAPSULE PO SCH (09:27)
[2022-05-12] MEDS: ENOXAPARIN 40 MG/0.4 ML SYRINGE SUBQ SCH (09:27)
[2022-05-12] MEDS: FUROSEMIDE 20 MG TABLET PO SCH (09:27)
[2022-05-12] MEDS: MULTIVITAMIN W/MINERALS TABLET PO SCH (09:28)
[2022-05-12] MEDS: CHOLECALCIFEROL 25 MCG TABLET PO SCH (09:28)
[2022-05-12] MEDS: cefTRIAXone 1 GM in SODIUM CHLORIDE 0.9% MINIBAG 100 ML IV SCH (09:28)
[2022-05-12] MEDS: THIAMINE 100 MG TABLET PO SCH (09:28)
--- NOTE | 2022-05-12 09:30 | CT Report ---
PROCEDURE: SOFT TISSUE NECK W INDICATIONS: dysphagia, neck anatomy distorted, CONTRAST: 80ml omni 300 TECHNIQUE: After the administration of intravenous contrast, 3.0 mm axial sections acquired from the sella to th e aortic arch. Additional oblique axial 3.0 mm sections acquired through the pharynx. 3 mm thick co marino reformats were generated. For radiation dose reduction, the following was used: automated exp osure control, adjustment of mA and/or kV according to patient size. COMPARISON: None. FINDINGS: Image quality: Excellent. Lymph nodes: No enlarged lymph nodes seen throughout the neck. Vessels: Visualized vasculature appears patent. Neck spaces: The oropharynx, nasopharynx, and pharynx demonstrate no mucosal lesions. The vocal cor ds, false vocal cords, pyriform sinuses, epiglottis, vallecula, and tongue base all appear normal. E xtramucosal spaces appear unremarkable. Glands: The parotid and submandibular glands appear normal. The thyroid is normal in size and there are no incidental findings. Miscellaneous: Visualized brain and orbits appear normal. Lung apices appear clear. Superficial so ft tissues appear normal. Bones: No suspicious bony lesions. Degenerative disc disease throughout cervical spine is seen. Muco dino thickening in right maxillary sinus is seen. There is fluid in left maxillary sinus. Opacificatio n of bilateral mastoids are also seen. IMPRESSION: 1. No gross neck soft tissue mass. Airway is patent. 2. No neck soft tissue lymphadenopathy by size criteria. 3. Suggestion of age-indeterminate in bilateral mastoiditis and bilateral maxillary sinusitis. CLINICAL RECOMMENDATION STATEMENTS: In patients <35 years with an ITN detected on CT, MRI, or extrathyroidal ultrasound, the Committee re commends further evaluation with dedicated thyroid ultrasound if the nodule is "e1 cm and has no susp icious imaging features, and if the patient has normal life expectancy. In patients "e35 years with an ITN detected on CT, MRI, or extrathyroidal ultrasound, the Committee r ecommends further evaluation with dedicated thyroid ultrasound if the nodule is "e1.5 cm and has no s uspicious imaging features, and if the patient has normal life expectancy. (ACR, 2014) Reviewed by: Aleksander Lombardi MD on 05/12/2022 9:29 AM PST Approved by: Aleksander Lombardi MD on 05/12/2022 9:29 AM PST Station ID: [id number]
[2022-05-12] MEDS: AZITHROMYCIN INJ 500 MG in SODIUM CHLORIDE 0.9% 250 ML IV SCH (10:03)
[2022-05-12] MEDS: lisinopriL 5 MG TABLET PO SCH (10:06)
[2022-05-12] MEDS: DIGOXIN 125 MCG TABLET PO SCH (10:06)
--- NOTE | 2022-05-12 10:37 | PHARMACY PROGRESS NOTE ---
- Best Possible Medication History Admit Date and Time: 05/11/22 1323 Processed by: Pharmacy Medication History completed: Yes As the person ultimately responsible for medication therapy, providers are able to order a medication from an existing home medication list in [facility] via the "Reconcile Routine" prior to Confirmation of that medication by manager decision support. Such practice is discouraged except when the physician, in their clinical judgment, deems that a medical need exists for a medication without regard to previous use.
[2022-05-12] MEDS ORDERED: WARFARIN 2.5 MG TABLET PO SCH (14:00)
[2022-05-12] MEDS ORDERED: FUROSEMIDE 40 MG/4 ML VIAL IVP ONE (15:54)
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
[2022-05-13] MEDS: SODIUM CHLORIDE FLUSH 0.9% 10 ML SYRINGE IVP SCH ×2 (00:09→09:19)
[2022-05-13] MEDS ORDERED: hydrALAZINE 10 MG TABLET PO PRN (00:25)
[2022-05-13] MEDS ORDERED: LORazepam 2 MG/ML VIAL IVP STA (03:27)
[2022-05-13 05:00] LABS: BASOPHILS # (AUTO) 0.1 10^3/uL (0.0-0.1); BASOPHILS % (AUTO) 0.4 %; EOSINOPHILS # (AUTO) 0.1 10^3/uL (0.0-0.7); EOSINOPHILS % (AUTO) 0.8 %; HCT - HEMATOCRIT 36.7 % (37.0-47.0); LYMPHOCYTES # (AUTO) 0.7 10^3/uL (1.5-3.5); LYMPHOCYTES % (AUTO) 5.6 %; MEAN CORPUSCULAR HEMOGLOBIN 30.6 pg (27.0-31.0); MEAN CORPUSCULAR VOLUME 102.2 fL (81.0-99.0); MEAN PLATELET VOLUME 10.4 fL (7.9-10.8); MONOCYTES # (AUTO) 0.6 10^3/uL (0.0-1.0); MONOCYTES % (AUTO) 5.3 %; NEUTROPHILS # (AUTO) 10.2 10^3/uL (1.5-6.6); NEUTROPHILS % (AUTO) 87.5 %; PLT - PLATELET COUNT 206 10^3/uL (130-450); RED BLOOD COUNT 3.59 10^6/uL (4.20-5.40); WHITE BLOOD COUNT 11.7 x10^3/uL (4.8-10.8)
[2022-05-13 05:06] LABS: INR 1.2 (0.8-1.2); PT - PROTHROMBIN TIME 13.1 secs (9.9-12.6)
[2022-05-13 05:14] LABS: CALCIUM 8.2 mg/dL (8.5-10.3); CREATININE 0.6 mg/dL (0.4-1.0); POTASSIUM 3.9 mmol/L (3.5-5.0)
[2022-05-13] MEDS: LEVOTHYROXINE 112 MCG TABLET PO SCH (07:51)
[2022-05-13 08:22] VITALS: BP 149/70
[2022-05-13] MEDS: THIAMINE 100 MG TABLET PO SCH (09:17)
[2022-05-13] MEDS: lisinopriL 5 MG TABLET PO SCH (09:17)
[2022-05-13] MEDS: FUROSEMIDE 20 MG TABLET PO SCH (09:19)
[2022-05-13] MEDS: diltiaZEM CD 120 MG CAPSULE PO SCH (09:19)
[2022-05-13] MEDS: DIGOXIN 125 MCG TABLET PO SCH (09:19)
[2022-05-13] MEDS: MULTIVITAMIN W/MINERALS TABLET PO SCH (09:19)
[2022-05-13] MEDS: CHOLECALCIFEROL 25 MCG TABLET PO SCH (09:19)
[2022-05-13] MEDS: ENOXAPARIN 40 MG/0.4 ML SYRINGE SUBQ SCH (09:46)
[2022-05-13] MEDS: cefTRIAXone 1 GM in SODIUM CHLORIDE 0.9% MINIBAG 100 ML IV SCH (10:15)
[2022-05-13] MEDS: AZITHROMYCIN INJ 500 MG in SODIUM CHLORIDE 0.9% 250 ML IV SCH (11:00)
[2022-05-13] MEDS: SODIUM CHLORIDE 0.9% 1,000 ML IV SCH (13:21)
[2022-05-13] MEDS ORDERED: WARFARIN 2.5 MG TABLET PO SCH (14:00)
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
== END 2022-05-13 15:14 | disposition expired | DRG 193 ==
LOC: EDUNIT# → ED 11:42 → MS2 13:23
PROVIDERS: ADMIT Specialist; ATTEND Specialist
DX: G93.40 Encephalopathy, unspecified (principal); J18.9 Pneumonia, unspecified organism; J96.11 Chronic respiratory failure with hypoxia; J96.12 Chronic respiratory failure with hypercapnia; J96.01 Acute respiratory failure with hypoxia; D53.9 Nutritional anemia, unspecified; Z20.822 Contact with and (suspected) exposure to COVID-19; I48.20 Chronic atrial fibrillation, unspecified; R09.89 Other specified symptoms and signs involving the circulatory and respiratory systems; J90 Pleural effusion, not elsewhere classified; I48.91 Unspecified atrial fibrillation; R64 Cachexia; Z68.1 Body mass index [BMI] 19.9 or less, adult; E03.9 Hypothyroidism, unspecified; H91.90 Unspecified hearing loss, unspecified ear; Z66 Do not resuscitate; R13.10 Dysphagia, unspecified; R32 Unspecified urinary incontinence; R35.0 Frequency of micturition; I06.0 Rheumatic aortic stenosis; S90.112A Contusion of left great toe without damage to nail, initial encounter; W22.8XXA Striking against or struck by other objects, initial encounter; Z87.891 Personal history of nicotine dependence
CPT/HCPCS: 36415; 36600; 70450; 70491; 71045; 73630; 73660; 80048; 80053; 80162; 81001; 82803; 83605; 83735; 83880; 85025; 85610; 87040; 87633; 92610; 93005; 94640; 96374; 99285; A9270; J1650; J2060; Q9967; 87086